=== PATIENT | female | born 1960 | race Caucasian/White ===

== ENCOUNTER 2016-08-21 06:43 | Emergency (ER) | payer OTHER ==
[2016-08-21] MEDS ORDERED: ONDANSETRON HCL IV 4 MG/2 ML VIAL IVP ONE (07:01)
[2016-08-21] MEDS ORDERED: 0.9 % SODIUM CHLORIDE 1,000 ML BAG IV ONE (07:01)
--- NOTE | 2016-08-21 07:13 | Emergency Department Record ---
History of Present Illness - General Chief complaint: Vomiting Stated complaint: VOMITING Time Seen by Provider: 08/21/16 07:09 Source: Patient Mode of Arrival: Ambulatory Limitations: No limitations - History of Present Illness Initial comments: 56 yo female presents with nausea, vomiting and frequent diarrhea since yesterday. The onset was in the afternoon. No blood in the vomit or diarrhea. No fevers. No recent antibiotics. She did eat at a [employer] [place] and noted one other sick contact that resolved yesterday. PSHx is hysterectomy. MD complaint: Diarrhea, Nausea, Vomiting Onset/Timin -: Hour(s) Description of Vomiting: Watery Associated Abdominal Pain: No Severity: Moderate Severity scale (1-10): 2 Quality: Cramping Consistency: Constant Improves with: None Worsens with: None Context: Possible food poisoning Associated Symptoms: Nausea/vomiting, Weakness - Related Data Home Medications Medication Instructions Recorded Confirmed Last Taken Methenamine Hippurate 1 gm PO DAILY 05/25/14 08/21/16 1 Day Ago Omeprazole [Omeprazole] 20 mg PO DAILY 05/25/14 08/21/16 1 Day Ago Alprazolam [Xanax] 0.25 mg PO Q8H 08/21/16 08/21/16 Unknown Estrogens, Conjugated [Premarin] 0.45 mg PO DAILY 08/21/16 08/21/16 Unknown Previous Rx's Medication Instructions Recorded Ondansetron [Zofran Odt] 4 mg PO Q8H #15 tab.rapdis 08/21/16 Allergies Allergy/AdvReac Type Severity Reaction Status Date / Time ciprofloxacin [From Cipro] AdvReac VOMITING Unverified 03/22/16 19:41 ciprofloxacin HCl AdvReac VOMITING Unverified 03/22/16 19:41 [From Cipro] hydrocodone bitartrate AdvReac VOMITING Unverified 03/22/16 19:41 [From Vicodin] morphine AdvReac VOMITING Unverified 03/22/16 19:41 Opioids - Morphine Analogues AdvReac VOMITING Verified 08/21/16 06:53 Travel Screening - Travel/Exposure Within Last 30 Days Have you traveled within the last 30 days?: No Review of Systems Constitutional: Denies: Chills, Fever, Night sweats Eyes: Denies: Eye discharge, Eye pain, Photophobia, Vision change ENT: Denies: Congestion, Throat pain Respiratory: Denies: Cough, Hemoptysis, Stridor Cardiovascular: Denies: Chest pain, Palpitations, Syncope Endocrine: Denies: Fatigue Gastrointestinal: Reports: Diarrhea, Nausea, Vomiting. Denies: Hematemesis, Hematochezia Genitourinary: Denies: Dysuria, Frequency Musculoskeletal: Denies: Arthralgia, Back pain, Myalgia, Neck pain Skin: Denies: Change in color, Rash Neurological: Denies: Headache Psychiatric: Denies: Anxiety Hematological/Lymphatic: Denies: Blood Clots, Easy bleeding, Easy bruising, Swollen glands Past Medical History - SOCIAL HISTORY Smoking Status: Former smoker Alcohol Use: None Drug Use: None - RESPIRATORY Hx Respiratory Disorders: No - CARDIOVASCULAR Hx Cardio Disorders: No - NEURO Hx Neuro Disorders: Yes Hx Headaches: Yes (hx of migraines) - GI Hx GI Disorders: Yes Hx Reflux: Yes Hx Irritable Bowel: Yes - Hx Genitourinary Disorders: No - ENDOCRINE Hx Endocrine Disorders: Yes Hx Thyroid Disease: Yes (hypo) - MUSCULOSKELETAL Hx Musculoskeletal Disorders: Yes Hx Arthritis: Yes - PSYCH Hx Psych Problems: Yes Hx Anxiety: Yes Hx Depression: Yes - HEMATOLOGY/ONCOLOGY Hx Hematology/Oncology Disorders: No Family Medical History Any Significant Family History?: Yes Hx Cancer: Father Hx Diabetes: Mother, Grandparents Physical Exam - General General Appearance: Alert, Oriented x3, Cooperative, No acute distress Limitations: No limitations - Head Head exam: Normal inspection - Eye Eye exam: Normal appearance. negative: Conjunctival injection - ENT ENT exam: Normal exam, Mucous membranes moist Ear exam: Normal external inspection Nasal Exam: Normal inspection Mouth exam: Normal external inspection Teeth exam: Normal inspection Throat exam: Normal inspection - Neck Neck exam: Normal inspection, Full ROM. negative: Tenderness - Respiratory Respiratory exam: Normal lung sounds bilaterally. negative: Respiratory distress - Cardiovascular Cardiovascular Exam: Regular rate, Normal rhythm, Normal heart sounds - GI/Abdominal GI/Abdominal exam: Soft. negative: Distended, Guarding, Rigid, Tenderness - Rectal Rectal exam: Deferred - exam: Deferred - Extremities Extremities exam: Normal inspection, Full ROM, Normal capillary refill. negative: Tenderness - Back Back exam: Reports: Normal inspection, Full ROM. Denies: Muscle spasm, Rash noted, Tenderness - Neurological Neurological exam: Alert, Normal gait, Oriented X3 - Psychiatric Psychiatric exam: Normal affect, Normal mood - Skin Skin exam: Dry, Intact, Normal color, Warm Course Vital Signs 08/21/16 07:02 Temperature 98.1 F Pulse Rate [ 79 Pulse Ox Probe] Respiratory 20 Rate Blood Pressure 141/116 [Left Arm] Pulse Ox 99 - Reevaluation(s) Reevaluation #1: Vitals reviewed. No tachycardia, hypotension or fever. 08/21/16 07:12 Reevaluation #2: The CBC and CMP reviewed. No acute changes 08/21/16 07:59 Reevaluation #3: The patient continues to feel better with controlled nausea No diarrhea at this time IVF nearly infused and will recheck. 08/21/16 09:02 Reevaluation #4: The patient is doing much better DC home with instructions 08/21/16 09:43 Medical Decision Making - Lab Data Result diagrams: 08/21/16 07:05 08/21/16 07:05 Disposition Clinical Impression: Vomiting and diarrhea Condition: (1) Good Instructions: Acute Nausea and Vomiting (ED), Acute Diarrhea (ED) Additional Instructions: Rest and stay well hydrated Return to the ED if you have fever, uncontrolled nausea, vomiting, diarrhea, pain or any new concerns. Prescriptions: Ondansetron [Zofran Odt] 4 mg PO Q8H #15 tab.rapdis Forms: Patient Portal Access
[2016-08-21 07:16] LABS: HEMATOCRIT 38.5 % (35.0-47.0); HEMOGLOBIN 13.2 gm/dl (11.6-16.0); MEAN CELL VOLUME 89.1 fl (81-97); MEAN CORPUSCULAR HEMOGLOBIN 30.6 pg (27-33); MEAN CORPUSCULAR HGB CONC 34.3 g/dl (32-36); MEAN PLATELET VOLUME 10.7 fl (7.4-10.4); PLATELET COUNT 270 K/uL (130-400); RED BLOOD COUNT 4.32 M/uL (3.80-5.40); RED CELL DISTRIBUTION WIDTH 12.8 % (11.5-14.5); WHITE BLOOD COUNT W/O DIFF 10.8 K/uL (4.2-12.2)
[2016-08-21 07:27] LABS: ALB/GLOB RATIO 1.8 (1.1-1.8); ALBUMIN 4.9 gm/dL (3.5-5.0); ALKALINE PHOSPHATASE 103 U/L (38-126); ALT/SGPT 34 U/L (9-52); ANION GAP 12.7 (7-16); AST/SGOT 26 U/L (14-36); BILIRUBIN,TOTAL 0.68 mg/dL (0.2-1.3); BLOOD UREA NITROGEN 18 mg/dL (7-17); CARBON DIOXIDE 22.3 mmol/L (22-30); CREATININE 0.8 mg/dL (0.52-1.04); EST GLOMERULAR FILTRATION RATE > 60 ml/min; GLUCOSE,RANDOM 128 mg/dL (70-110); LIPASE 94 U/L (23-300); TOTAL PROTEIN 7.7 gm/dL (6.3-8.2)
[2016-08-21 07:29] LABS: PLATELET ESTIMATE NORMAL (NORMAL)
[2016-08-21] MEDS ORDERED: LOPERAMIDE 2 MG CAPSULE PO ONE (07:36)
[2016-08-21] MEDS ORDERED: ACETAMINOPHEN 500 MG TABLET PO ONE (09:02)
== END 2016-08-21 09:57 | disposition home or self-care (01) ==
LOC: ER 06:43
DX: R11.2 Nausea with vomiting, unspecified (principal); R19.7 Diarrhea, unspecified; R53.1 Weakness
CPT/HCPCS: 80053; 83690; 85027; 96374; 99284; J2405; J7030

== ENCOUNTER 2016-08-27 06:45 | Emergency (ER) | payer OTHER ==
[2016-08-27] MEDS ORDERED: PROMETHAZINE HCL 25 MG/ML VIAL IVP ONE (07:21)
--- NOTE | 2016-08-27 07:35 | Emergency Department Record ---
History of Present Illness - General Chief Complaint: Dizziness Stated Complaint: VERTIGO Time Seen by Provider: 08/27/16 07:10 Source: Patient Mode of Arrival: Ambulatory Limitations: No limitations - History of Present Illness Initial Comments: pt is having a bout of vertigo. she ran into a wall x 2 yesterday. she is vomiting. she tried her head movement exercises without relief. she has had this for 15 years and has had ct and work up. MD Complaint: Dizziness Onset/Timin -: Days(s) Timing: Awoke with symptoms Description: Difficulty walking, Nausea, Off-balance History of Same: Yes History of Trauma: No Severity: Moderate Improves With: Nothing Worsens With: Nothing Associated Symptoms: Denies other symptoms - Chandler Coma Scale Eye Response: (4) Open spontaneously Motor Response: (6) Obeys commands Verbal Response: (5) Oriented Chandler Total: 15 - Symptoms of Stroke Symptoms of stroke: Vertigo - Related Data Home Medications Medication Instructions Recorded Confirmed Last Taken Methenamine Hippurate 1 gm PO DAILY 05/25/14 08/27/16 1 Day Ago Omeprazole [Omeprazole] 20 mg PO DAILY 05/25/14 08/27/16 1 Day Ago Alprazolam [Xanax] 0.25 mg PO Q8H 08/21/16 08/27/16 Unknown Estrogens, Conjugated [Premarin] 0.45 mg PO DAILY 08/21/16 08/27/16 Unknown Previous Rx's Medication Instructions Recorded Ondansetron [Zofran Odt] 4 mg PO Q8H #15 tab.rapdis 08/21/16 Meclizine HCl [Antivert] 12.5 mg PO Q8H #20 tablet 08/27/16 Allergies Allergy/AdvReac Type Severity Reaction Status Date / Time ciprofloxacin [From Cipro] AdvReac VOMITING Verified 08/27/16 06:53 ciprofloxacin HCl AdvReac VOMITING Verified 08/27/16 06:53 [From Cipro] hydrocodone bitartrate AdvReac VOMITING Verified 08/27/16 06:53 [From Vicodin] morphine AdvReac VOMITING Verified 08/27/16 06:53 Opioids - Morphine Analogues AdvReac VOMITING Verified 08/27/16 06:53 Travel Screening - Travel/Exposure Within Last 30 Days Have you traveled within the last 30 days?: No - Travel/Exposure Within Last Year Have you traveled outside the [place] in the last year?: No - Additonal Travel Details Have you been exposed to anyone with a communicable illness?: No - Travel Symptoms Symptom Screening: None Review of Systems Reviewed: No additional complaints except as noted below Constitutional: Reports: As per HPI. Denies: Chills, Fever, Malaise, Night sweats, Weakness, Weight change Eyes: Reports: As per HPI. Denies: Eye discharge, Eye pain, Photophobia, Vision change ENT: Reports: As per HPI. Denies: Congestion, Dental pain, Ear pain, Epistaxis , Hearing loss, Throat pain Respiratory: Reports: As per HPI. Denies: Cough, Dyspnea, Hemoptysis, Stridor, Wheezes Cardiovascular: Reports: As per HPI. Denies: Arrhythmia, Chest pain, Dyspnea on exertion, Edema, Murmurs, Orthopnea, Palpitations, Paroxysmal nocturnal dyspnea, Rheumatic Fever, Syncope Endocrine: Reports: As per HPI. Denies: Fatigue, Heat or cold intolerance, Polydipsia, Polyuria Gastrointestinal: Reports: As per HPI. Denies: Abdominal pain, Constipation, Diarrhea, Hematemesis, Hematochezia, Melena, Nausea, Vomiting Genitourinary: Reports: As per HPI. Denies: Abnormal menses, Discharge, Dyspareunia, Dysuria, Frequency, Hematuria, Incontinence, Retention, Urgency Musculoskeletal: Reports: As per HPI. Denies: Arthralgia, Back pain, Gout, Joint swelling, Myalgia, Neck pain Skin: Reports: As per HPI. Denies: Bruising, Change in color, Change in hair/ nails, Lesions, Pruritus, Rash Neurological: Reports: As per HPI. Denies: Abnormal gait, Confusion, Headache, Numbness, Paresthesias, Seizure, Tingling, Tremors, Vertigo, Weakness Psychiatric: Reports: As per HPI. Denies: Anxiety, Auditory hallucinations, Depression, Homicidal thoughts, Suicidal thoughts, Visual hallucinations Hematological/Lymphatic: Reports: As per HPI. Denies: Anemia, Blood Clots, Easy bleeding, Easy bruising, Swollen glands Past Medical History - SOCIAL HISTORY Smoking Status: Former smoker Alcohol Use: None Drug Use: None - RESPIRATORY Hx Respiratory Disorders: No - CARDIOVASCULAR Hx Cardio Disorders: No - NEURO Hx Neuro Disorders: Yes Hx Headaches: Yes (hx of migraines) - GI Hx GI Disorders: Yes Hx Reflux: Yes Hx Irritable Bowel: Yes - Hx Genitourinary Disorders: No - ENDOCRINE Hx Endocrine Disorders: Yes Hx Thyroid Disease: Yes (hypo) - MUSCULOSKELETAL Hx Musculoskeletal Disorders: Yes Hx Arthritis: Yes - PSYCH Hx Psych Problems: Yes Hx Anxiety: Yes Hx Depression: Yes - HEMATOLOGY/ONCOLOGY Hx Hematology/Oncology Disorders: No Family Medical History Any Significant Family History?: No Hx Cancer: Father Hx Diabetes: Mother, Grandparents Physical Exam - General General Appearance: Alert, Oriented x3, Cooperative, Mild distress - Head Head exam: Normal inspection - Eye Eye exam: Normal appearance, PERRL, EOMI Pupils: Normal accommodation - ENT ENT exam: Normal exam, Mucous membranes moist, Normal external ear exam, Normal orophraynx, TM's normal bilaterally Ear exam: Normal external inspection. negative: External canal tenderness Nasal Exam: Normal inspection. negative: Discharge, Sinus tenderness Mouth exam: Normal external inspection, Tongue normal Teeth exam: Normal inspection. negative: Dental caries Throat exam: Normal inspection. negative: Tonsillar erythema, Tonsillar exudate - Neck Neck exam: Normal inspection, Full ROM. negative: Tenderness - Respiratory Respiratory exam: Normal lung sounds bilaterally. negative: Respiratory distress - Cardiovascular Cardiovascular Exam: Regular rate, Normal rhythm, Normal heart sounds - GI/Abdominal GI/Abdominal exam: Soft, Normal bowel sounds. negative: Tenderness - Rectal Rectal exam: Deferred - exam: Deferred - Extremities Extremities exam: Normal inspection, Full ROM, Normal capillary refill. negative: Tenderness - Back Back exam: Reports: Normal inspection, Full ROM. Denies: Muscle spasm, Rash noted, Tenderness - Neurological Neurological exam: Alert, CN II-XII intact, Normal gait, Oriented X3 - Psychiatric Psychiatric exam: Normal affect, Normal mood - Skin Skin exam: Dry, Intact, Normal color, Warm Course Vital Signs 08/27/16 06:55 Temperature 97.9 F Pulse Rate 83 Respiratory 21 Rate Blood Pressure 153/91 Pulse Ox 96 - Reevaluation(s) Reevaluation #1: 08/27/16 08:33 pt feels better Disposition Disposition: Discharge Clinical Impression: Vertigo Disposition: Home, Self-Care Condition: (1) Good Instructions: Vertigo (ED) Additional Instructions: follow up with family doctor, return sooner if worse. Prescriptions: Meclizine HCl [Antivert] 12.5 mg PO Q8H #20 tablet Forms: Patient Portal Access
[2016-08-27] MEDS ORDERED: 0.9 % SODIUM CHLORIDE 1,000 ML BAG IV ONE (07:36)
[2016-08-27] MEDS ORDERED: MECLIZINE 25 MG TABLET PO ONE (08:37)
== END 2016-08-27 09:00 | disposition home or self-care (01) ==
LOC: ER 06:45
DX: R42 Dizziness and giddiness (principal); R11.2 Nausea with vomiting, unspecified
CPT/HCPCS: 96361; 96374; 99284; J2550; J7030

== ENCOUNTER 2016-10-02 07:33 | Emergency (ER) | payer OTHER ==
[2016-10-02] MEDS ORDERED: ONDANSETRON HCL IV 4 MG/2 ML VIAL IVP ONE (08:21)
[2016-10-02] MEDS ORDERED: 0.9 % SODIUM CHLORIDE 1,000 ML BAG IV ONE (08:37)
[2016-10-02 08:46] LABS: BASO % 0.5 % (0-6); EOS % 0.3 % (0-6); GRAN % 77.7 % (47-80); HEMATOCRIT 41.8 % (35.0-47.0); HEMOGLOBIN 13.5 gm/dl (11.6-16.0); LYMPH % 16.8 % (16-45); MEAN CELL VOLUME 89.3 fl (81-97); MEAN CORPUSCULAR HEMOGLOBIN 28.8 pg (27-33); MEAN CORPUSCULAR HGB CONC 32.3 g/dl (32-36); MEAN PLATELET VOLUME 10.8 fl (7.4-10.4); MONO % 4.7 % (0-9); PLATELET COUNT 291 K/uL (130-400); RED BLOOD COUNT 4.68 M/uL (3.80-5.40); RED CELL DISTRIBUTION WIDTH 13.2 % (11.5-14.5); WHITE BLOOD COUNT W/O DIFF 9.9 K/uL (4.2-12.2)
[2016-10-02] MEDS ORDERED: HYDROMORPHONE HCL 1 MG/ML CPJ IVP ONE (08:51)
[2016-10-02 09:00] LABS: ALB/GLOB RATIO 1.8 (1.1-1.8); ALKALINE PHOSPHATASE 88 U/L (38-126); ALT/SGPT 28 U/L (9-52); ANION GAP 13.1 (7-16); AST/SGOT 20 U/L (14-36); BILIRUBIN,TOTAL 0.89 mg/dL (0.2-1.3); BLOOD UREA NITROGEN 17 mg/dL (7-17); CARBON DIOXIDE 24.9 mmol/L (22-30); CREATININE 0.8 mg/dL (0.52-1.04); EST GLOMERULAR FILTRATION RATE > 60 ml/min; GLUCOSE,RANDOM 104 mg/dL (70-110); LIPASE 73 U/L (23-300); TOTAL PROTEIN 7.8 gm/dL (6.3-8.2)
[2016-10-02] MEDS ORDERED: KETOROLAC 30 MG/ML VIAL IVP ONE (09:49)
[2016-10-02 10:01] LABS: URINE APPEARANCE CLEAR; URINE BILIRUBIN NEGATIVE (NEGATIVE); URINE BLOOD NEGATIVE (NEGATIVE); URINE COLOR YELLOW; URINE GLUCOSE (UA) NEGATIVE (NEGATIVE); URINE KETONE NEGATIVE (NEGATIVE); URINE LEUKOCYTE ESTERASE NEGATIVE (NEGATIVE); URINE NITRITE NEGATIVE (NEGATIVE); URINE PROTEIN NEGATIVE (NEGATIVE); URINE UROBILINOGEN 0.2 E.U./dL (0.20 - 1.00)
--- NOTE | 2016-10-02 10:28 | Emergency Department Record ---
History of Present Illness - General Chief Complaint: Abdominal Pain Stated Complaint: UPPER RIGHT QUAD PAIN Time Seen by Provider: 10/02/16 08:32 Source: Patient Mode of Arrival: Ambulatory Limitations: No limitations - History of Present Illness Initial Comments: pt has been having intermittant ruq abd pain since . She had a neg gb us last week. she has n/v but no c/d. MD Complaint: Abdominal pain Onset/Timin -: Month(s) Location: RUQ Radiation: Back, R flank Severity: Severe Quality: Burning, Sharp, Stabbing Improves With: Nothing Worsens With: Nothing Associated Symptoms: Nausea, Vomiting - Related Data Patient : No Home Medications Medication Instructions Recorded Confirmed Last Taken Methenamine Hippurate 1 gm PO DAILY 05/25/14 10/02/16 10/02/16 Omeprazole [Omeprazole] 20 mg PO DAILY 05/25/14 10/02/16 10/02/16 Alprazolam [Xanax] 0.25 mg PO Q8H 08/21/16 10/02/16 10/01/16 Estrogens, Conjugated [Premarin] 0.45 mg PO DAILY 08/21/16 10/02/16 10/01/16 Previous Rx's Medication Instructions Recorded Ondansetron [Zofran Odt] 4 mg PO Q8H #15 tab.rapdis 08/21/16 Meclizine HCl [Antivert] 12.5 mg PO Q8H #20 tablet 08/27/16 Allergies Allergy/AdvReac Type Severity Reaction Status Date / Time ciprofloxacin [From Cipro] AdvReac VOMITING Verified 08/27/16 06:53 ciprofloxacin HCl AdvReac VOMITING Verified 08/27/16 06:53 [From Cipro] hydrocodone bitartrate AdvReac VOMITING Verified 08/27/16 06:53 [From Vicodin] morphine AdvReac VOMITING Verified 08/27/16 06:53 Opioids - Morphine Analogues AdvReac VOMITING Verified 08/27/16 06:53 Travel Screening - Travel/Exposure Within Last 30 Days Have you traveled within the last 30 days?: No - Travel/Exposure Within Last Year Have you traveled outside the [place] in the last year?: No - Additonal Travel Details Have you been exposed to anyone with a communicable illness?: No Review of Systems Reviewed: No additional complaints except as noted below Constitutional: Reports: As per HPI. Denies: Chills, Fever, Malaise, Night sweats, Weakness, Weight change Eyes: Reports: As per HPI. Denies: Eye discharge, Eye pain, Photophobia, Vision change ENT: Reports: As per HPI. Denies: Congestion, Dental pain, Ear pain, Epistaxis , Hearing loss, Throat pain Respiratory: Reports: As per HPI. Denies: Cough, Dyspnea, Hemoptysis, Stridor, Wheezes Cardiovascular: Reports: As per HPI. Denies: Arrhythmia, Chest pain, Dyspnea on exertion, Edema, Murmurs, Orthopnea, Palpitations, Paroxysmal nocturnal dyspnea, Rheumatic Fever, Syncope Endocrine: Reports: As per HPI. Denies: Fatigue, Heat or cold intolerance, Polydipsia, Polyuria Gastrointestinal: Reports: As per HPI. Denies: Abdominal pain, Constipation, Diarrhea, Hematemesis, Hematochezia, Melena, Nausea, Vomiting Genitourinary: Reports: As per HPI. Denies: Abnormal menses, Discharge, Dyspareunia, Dysuria, Frequency, Hematuria, Incontinence, Retention, Urgency Musculoskeletal: Reports: As per HPI. Denies: Arthralgia, Back pain, Gout, Joint swelling, Myalgia, Neck pain Skin: Reports: As per HPI. Denies: Bruising, Change in color, Change in hair/ nails, Lesions, Pruritus, Rash Neurological: Reports: As per HPI. Denies: Abnormal gait, Confusion, Headache, Numbness, Paresthesias, Seizure, Tingling, Tremors, Vertigo, Weakness Psychiatric: Reports: As per HPI. Denies: Anxiety, Auditory hallucinations, Depression, Homicidal thoughts, Suicidal thoughts, Visual hallucinations Hematological/Lymphatic: Reports: As per HPI. Denies: Anemia, Blood Clots, Easy bleeding, Easy bruising, Swollen glands Past Medical History - SOCIAL HISTORY Smoking Status: Former smoker Alcohol Use: None Drug Use: None - RESPIRATORY Hx Respiratory Disorders: No - CARDIOVASCULAR Hx Cardio Disorders: No - NEURO Hx Neuro Disorders: Yes Hx Headaches: Yes (hx of migraines) - GI Hx GI Disorders: Yes Hx Reflux: Yes Hx Irritable Bowel: Yes - Hx Genitourinary Disorders: No - ENDOCRINE Hx Endocrine Disorders: Yes Hx Thyroid Disease: Yes (hypo) - MUSCULOSKELETAL Hx Musculoskeletal Disorders: Yes Hx Arthritis: Yes - PSYCH Hx Psych Problems: Yes Hx Anxiety: Yes Hx Depression: Yes - HEMATOLOGY/ONCOLOGY Hx Hematology/Oncology Disorders: No Family Medical History Any Significant Family History?: No Hx Cancer: Father Hx Diabetes: Mother, Grandparents Physical Exam - General General Appearance: Alert, Oriented x3, Cooperative, No acute distress - Head Head exam: Normal inspection - Eye Eye exam: Normal appearance, PERRL, EOMI Pupils: Normal accommodation - ENT ENT exam: Normal exam, Mucous membranes moist, Normal external ear exam, Normal orophraynx, TM's normal bilaterally Ear exam: Normal external inspection. negative: External canal tenderness Nasal Exam: Normal inspection. negative: Discharge, Sinus tenderness Mouth exam: Normal external inspection, Tongue normal Teeth exam: Normal inspection. negative: Dental caries Throat exam: Normal inspection. negative: Tonsillar erythema, Tonsillar exudate - Neck Neck exam: Normal inspection, Full ROM. negative: Tenderness - Respiratory Respiratory exam: Normal lung sounds bilaterally. negative: Respiratory distress - Cardiovascular Cardiovascular Exam: Regular rate, Normal rhythm, Normal heart sounds - GI/Abdominal GI/Abdominal exam: Soft, Normal bowel sounds, Tenderness (ruq) - Rectal Rectal exam: Deferred - exam: Deferred - Extremities Extremities exam: Normal inspection, Full ROM, Normal capillary refill. negative: Tenderness - Back Back exam: Reports: Normal inspection, Full ROM. Denies: Muscle spasm, Rash noted, Tenderness - Neurological Neurological exam: Alert, Normal gait, Oriented X3, Reflexes normal - Psychiatric Psychiatric exam: Normal affect, Normal mood - Skin Skin exam: Dry, Intact, Normal color, Warm Course Vital Signs 10/02/16 10/02/16 10/02/16 07:43 09:00 09:50 Temperature 98.7 F Pulse Rate [ 92 H 72 68 Pulse Ox Probe] Respiratory 24 24 24 Rate Blood Pressure 107/73 126/77 133/87 [Right Arm] Pulse Ox 99 99 99 - Reevaluation(s) Reevaluation #1: 10/02/16 11:44 pt feels better. pt d/w dr sandoval who will order a hida scan. Reevaluation #2: 10/02/16 11:46 pt does not want any other pain meds. she states she already has some. Medical Decision Making - Management Options MDM Management: Additional Work-up Planned (e.g. ADM/Transfer/OP Study) - Data Complexity MDM Data: Labs Ordered and/or Reviewed, X-Ray Ordered and/or Reviewed - Lab Data Result diagrams: 10/02/16 08:00 10/02/16 08:00 Lab Results 10/02/16 10/02/16 10/02/16 Range/Units 08:00 08:00 09:55 WBC 9.9 (4.2-12.2) K/uL RBC 4.68 (3.80-5.40) M/uL Hgb 13.5 (11.6-16.0) gm/dl Hct 41.8 (35.0-47.0) % MCV 89.3 (81-97) fl MCH 28.8 (27-33) pg MCHC 32.3 (32-36) g/dl RDW 13.2 (11.5-14.5) % Plt Count 291 (130-400) K/uL MPV 10.8 H (7.4-10.4) fl Gran % 77.7 (47-80) % Lymphocytes % 16.8 (16-45) % Monocytes % 4.7 (0-9) % Eosinophils % 0.3 (0-6) % Basophils % 0.5 (0-6) % Sodium 141 (136-145) mmol/L Potassium 4.2 (3.5-5.1) mmol/L Chloride 103 (98-107) mmol/L Carbon Dioxide 24.9 (22-30) mmol/L Anion Gap 13.1 (7-16) BUN 17 (7-17) mg/dL Creatinine 0.8 (0.52-1.04) mg/dL Estimated GFR > 60 ml/min Random Glucose 104 (70-110) mg/dL Calcium 9.8 (8.5-10.1) mg/dL Total Bilirubin 0.89 (0.2-1.3) mg/dL AST 20 (14-36) U/L ALT 28 (9-52) U/L Alkaline Phosphatase 88 (38-126) U/L Total Protein 7.8 (6.3-8.2) gm/dL Albumin 5.0 (3.5-5.0) gm/dL Globulin 2.8 (1.4-4.8) gm/dL Albumin/Globulin Ratio 1.8 (1.1-1.8) Lipase 73 (23-300) U/L Urine Color Yellow Urine Appearance Clear Urine pH 6.0 (5.0-8.0) Ur Specific [place] 1.010 (1.002-1.030) Urine Protein Negative (NEGATIVE) Urine Glucose (UA) Negative (NEGATIVE) Urine Ketones Negative (NEGATIVE) Urine Blood Negative (NEGATIVE) Urine Nitrite Negative (NEGATIVE) Urine Bilirubin Negative (NEGATIVE) Urine Urobilinogen 0.2 (0.20 - 1.00) E.U./dL Ur Leukocyte Esterase Negative (NEGATIVE) - Radiology Data Radiology results: Report reviewed, Image reviewed Disposition Disposition: Discharge Clinical Impression: RUQ pain Disposition: Home, Self-Care Condition: (1) Good Instructions: Abdominal Pain (ED) Additional Instructions: follow up with family doctor. return sooner if worse. Forms: Patient Portal Access
== END 2016-10-02 12:01 | disposition home or self-care (01) ==
LOC: ER 07:33
DX: R10.11 Right upper quadrant pain (principal); R11.2 Nausea with vomiting, unspecified
CPT/HCPCS: 99284 ×2; 96374; 96375; 83690; 85025; 80053; 81003; 74177; Q9967; J1885; J2405; J1170; J7030

== ENCOUNTER 2016-10-16 07:30 | Day surgery (SDC) | payer OTHER ==
[~2016-10-16 07:30] MED LIST: ACETAMINOPHEN 1,000 MG/100 ML BTL IV ONE; FAMOTIDINE 20MG TABLET PO ONE; MECLIZINE 25 MG TABLET PO ONE; METOCLOPRAMIDE 10 MG TABLET PO ONE
[2016-10-16] MEDS ORDERED: ACETAMINOPHEN W/ CODEINE 300MG/30MG TABLET PO ONE (13:27)
[2016-10-16] MEDS ORDERED: BUPIVACAINE 0.25% W/EPI MPF 30ML VIAL IVP ONE (13:27)
[2016-10-16] MEDS ORDERED: FENTANYL PF 100MCG/2ML VIAL IV ONE (13:27)
[2016-10-16] MEDS ORDERED: MIDAZOLAM HCL 2MG/2ML VIAL IV ONE (14:00)
[2016-10-16] MEDS ORDERED: DESFLURANE 240 ML BTL INH ONE (14:00)
[2016-10-16] MEDS ORDERED: GLYCOPYRROLATE 0.2 MG/ML ML IV ONE (14:00)
[2016-10-16] MEDS ORDERED: NEOSTIGMINE 1 MG/1 ML,10ML VIAL IV ONE (14:00)
[2016-10-16] MEDS ORDERED: DEXAMETHASONE 4 MG/ML 1ML VIAL IVP ONE (14:00)
[2016-10-16] MEDS ORDERED: ESMOLOL HCL 100 MG/10 ML ML IVP ONE (14:00)
[2016-10-16] MEDS ORDERED: ROCURONIUM BROMIDE 50MG/5ML VIAL IV ONE (14:00)
[2016-10-16] MEDS ORDERED: PROPOFOL 10 MG/ML VIAL IV ONE (14:00)
[2016-10-16] MEDS ORDERED: ONDANSETRON HCL IV 4 MG/2 ML VIAL IVP ONE (14:00)
[2016-10-16] MEDS ORDERED: SUCCINYLCHOLINE 20 MG/ML 10ML IVP ONE (14:00)
[2016-10-16] MEDS ORDERED: KETOROLAC 30 MG/ML VIAL IVP ONE (14:00)
[2016-10-16] MEDS ORDERED: LIDOCAINE 2% MDV (20MG/ML) 20ML VIAL IV ONE (14:00)
--- NOTE | 2016-10-19 17:07 | Operative Note ---
DATE OF SURGERY: 10/16/2016. SURGEON: Derrick Rodriguez DO. PREOPERATIVE DIAGNOSIS: Symptomatic biliary dyskinesia. POSTOPERATIVE DIAGNOSIS: Symptomatic biliary dyskinesia. OPERATION: Laparoscopic cholecystectomy. Indication: Patient is a 56-year-old female who I saw in clinic for ongoing right subcostal postprandial pain. Imaging studies revealed an ejection fraction of 15% with symptomatic reproduction of her pain. We did discuss cholecystectomy, the risks, and medical management. She desired surgical intervention. Risks include, but not limited to, bleeding, infection, ductal injury, possible conversion to open, postoperative bile leak, and she understood this fully. PROCEDURE: Informed consent was signed and questions answered. She was taken to the operating room and placed in the supine position. General anesthesia was administered per Department of Anesthesia. Patient's abdomen was prepped and draped in the usual fashion. At this time, the supraumbilical region was anesthetized with a total of 2 mL of 0.25% Sensorcaine with epinephrine. A 2 cm supraumbilical incision made. This was carried down to the anterior rectus fascia. This was incised. Jass clamps were placed on the fascial edges and brought up into the wound. Stay sutures of 0 Vicryl placed. Posterior rectus sheath was identified, incised and the peritoneal cavity was entered bluntly. At this time, a 10 mm blunt Raissa port was placed and adequate pneumoperitoneum established. Under direct visualization, an additional 5 mm epigastric and two 5 mm right subcostal ports were placed. Patient then rotated into reverse Trendelenburg position to the left. Gallbladder was then retracted in cephalad and lateral direction, opening the angle of Calot. The hepatocystic triangle was thoroughly dissected out. There was no aberrant anatomy. No posterior ductal structures. Cystic duct and cystic artery were clearly identified. At this time, after the gallbladder was released from the liver exposure. At this time, each one was doubly clipped and cut in standard fashion. The gallbladder was taken off the liver bed with the Manpreet Harmonic. At this time, this was extracted infraumbilically. At this time, the right upper quadrant was then rechecked and was found to be hemostatic. No bleeding, no bile leak, and no bowel injury noted. Patient was leveled out and pneumoperitoneum was released. All ports were removed. The fascia closed with 0 Vicryl in a [id number] fashion. All ports closed with 4-0 Vicryl. She was taken to the recovery room in satisfactory condition. Final pathology pending. MESFIN
== END 2016-10-16 11:25 | disposition home or self-care (01) ==
LOC: SUR 07:30
PROVIDERS: ATTEND Surgery
DX: K82.8 Other specified diseases of gallbladder (principal); E03.9 Hypothyroidism, unspecified
CPT/HCPCS: 47562; 00790; J1885; J2405; J3010; J0330; J2710

== ENCOUNTER 2016-10-16 20:42 | Emergency (ER) | payer OTHER ==
--- NOTE | 2016-10-16 22:16 | Emergency Department Record ---
History of Present Illness - General Chief complaint: Pain Stated complaint: POST OP PAIN Time Seen by Provider: 10/16/16 21:12 Source: Patient, Family Mode of Arrival: Ambulatory Limitations: No limitations - History of Present Illness Initial comments: 56 yo female presents with RUQ pain after surgery today. She had her gallbladder removed by Dr Rodriguez this morning. She reports she was discharged home by 11am. The pain started around 11am. No chest pain or cough. No shortness of breath. The pain is isolated to the RUQ. She has not voided since surgery. She is on T3 and Motrin. She is not able to tolerate Morphine or Diluadid. No diarrhea. MD Complaint: Abdominal Pain Onset/Timin -: Hour(s) Location: Right Severity scale (1-10): 10 Quality: Sharp, Stabbing Consistency: Constant Improves with: Nothing Worsens with: Exertion, Walking, Other Associated Symptoms: Denies other symptoms - Related Data Home Medications Medication Instructions Recorded Confirmed Last Taken Methenamine Hippurate 1 gm PO DAILY 05/25/14 10/16/16 10/16/16 Omeprazole [Omeprazole] 20 mg PO DAILY 05/25/14 10/16/16 10/16/16 Alprazolam [Xanax] 0.25 mg PO Q8H 08/21/16 10/16/16 10/16/16 Estrogens, Conjugated [Premarin] 0.45 mg PO DAILY 08/21/16 10/16/16 10/16/16 Previous Rx's Medication Instructions Recorded Ondansetron [Zofran Odt] 4 mg PO Q8H #15 tab.rapdis 08/21/16 Meclizine HCl [Antivert] 12.5 mg PO Q8H #20 tablet 08/27/16 Allergies Allergy/AdvReac Type Severity Reaction Status Date / Time ciprofloxacin [From Cipro] AdvReac VOMITING Verified 08/27/16 06:53 ciprofloxacin HCl AdvReac VOMITING Verified 08/27/16 06:53 [From Cipro] hydrocodone bitartrate AdvReac VOMITING Verified 08/27/16 06:53 [From Vicodin] morphine AdvReac VOMITING Verified 08/27/16 06:53 Opioids - Morphine Analogues AdvReac VOMITING Verified 08/27/16 06:53 Travel Screening - Travel/Exposure Within Last 30 Days Have you traveled within the last 30 days?: No Review of Systems Constitutional: Denies: Chills, Fever, Malaise, Weakness Eyes: Denies: Eye discharge ENT: Denies: Congestion, Throat pain Respiratory: Denies: Cough, Dyspnea, Hemoptysis, Stridor, Wheezes Cardiovascular: Denies: Chest pain, Palpitations, Syncope Endocrine: Denies: Fatigue, Polydipsia, Polyuria Gastrointestinal: Reports: Abdominal pain. Denies: Diarrhea, Nausea, Vomiting Genitourinary: Denies: Dysuria, Urgency Musculoskeletal: Denies: Arthralgia, Back pain, Myalgia, Neck pain Skin: Denies: Bruising, Change in color, Rash Neurological: Denies: Headache, Numbness, Vertigo, Weakness Psychiatric: Denies: Anxiety Hematological/Lymphatic: Denies: Blood Clots, Easy bleeding, Easy bruising, Swollen glands Past Medical History - SOCIAL HISTORY Smoking Status: Former smoker Alcohol Use: None Drug Use: None - RESPIRATORY Hx Respiratory Disorders: No - CARDIOVASCULAR Hx Cardio Disorders: No - NEURO Hx Neuro Disorders: Yes Hx Dizziness: Yes (HX VERTIGO) Hx Headaches: Yes (hx of migraines) Hx of Migraines: Yes - GI Hx GI Disorders: Yes Hx Abdominal Pain: Yes (R/T GALLBLADDER) Hx Reflux: Yes Hx Irritable Bowel: Yes Hx Nausea/Vomiting: Yes - Hx Genitourinary Disorders: No Hx Bladder Problem: Yes (PROLAPSE) - ENDOCRINE Hx Endocrine Disorders: Yes Hx Thyroid Disease: Yes (hypo) - MUSCULOSKELETAL Hx Musculoskeletal Disorders: Yes Hx Arthritis: Yes (OSTEOARTHRITIS, DDD) - PSYCH Hx Psych Problems: Yes Hx Anxiety: Yes Hx Depression: Yes - HEMATOLOGY/ONCOLOGY Hx Hematology/Oncology Disorders: No Family Medical History Any Significant Family History?: No Hx Cancer: Father Hx Diabetes: Mother, Grandparents Physical Exam - General General Appearance: Alert, Oriented x3, Cooperative, No acute distress Limitations: No limitations - Head Head exam: Atraumatic, Normal inspection - Eye Eye exam: Normal appearance, PERRL. negative: Conjunctival injection, Periorbital swelling - ENT ENT exam: Normal exam, Mucous membranes moist Ear exam: Normal external inspection Nasal Exam: Normal inspection Mouth exam: Normal external inspection Teeth exam: Normal inspection Throat exam: Normal inspection - Neck Neck exam: Normal inspection - Respiratory Respiratory exam: Normal lung sounds bilaterally. negative: Respiratory distress - Cardiovascular Cardiovascular Exam: Regular rate, Normal rhythm, Normal heart sounds - GI/Abdominal GI/Abdominal exam: Soft, Tenderness (Tender in the RUQ but soft) - Rectal Rectal exam: Deferred - exam: Deferred - Extremities Extremities exam: Normal inspection, Full ROM, Normal capillary refill. negative: Pedal edema, Tenderness - Back Back exam: Reports: Normal inspection, Full ROM. Denies: CVA tenderness (R), CVA tenderness (L), Muscle spasm, Rash noted, Tenderness - Neurological Neurological exam: Alert, Normal gait, Oriented X3, Reflexes normal - Psychiatric Psychiatric exam: Normal affect, Normal mood - Skin Skin exam: Dry, Intact, Normal color, Warm Course Vital Signs 10/16/16 21:31 Temperature 98.0 F Pulse Rate [ 106 H Pulse Ox Probe] Respiratory 20 Rate Blood Pressure 137/84 [Left Arm] Pulse Ox 98 - Reevaluation(s) Reevaluation #1: 10/16/16 22:17 Bladder scan ordered given she has not voided since surgery Reevaluation #2: The labs were reviewed The WBC count was 13.8 HCO3 19 The bladder scan was greater than 1000ml Yost was placed. About 800ml quickly drained. The abdominal pain increased. She was given Ofirmev 10/16/16 23:09 Reevaluation #3: The UA is negative The pain in the RUQ persists The patient states the RUQ pain is unchanged She does feel a tickle in her throat now that is making her cough. She denies any CP. 10/16/16 23:[address] Rodriguez of general surgery. He states the case was uncomplicated today. He does not recommend any imaging given the surgery was 12 hours earlier. He recommends trying other pain control options with the patient According to the EMR the patient did have Fentanyl today without reaction I explained this to the patient and she agrees to take Fentanyl EKG 23:30 NSR, rate 82, intervals Qt 405 QTc 479, ST normal, [place] leftward, no acute changes. No changes from prior EKG 10/16/16 23:41 10/16/16 23:44 Reevaluation #4: The patient was given Fentanyl without reaction or hives or vomiting. She reported improved pain control. 10/17/16 00:14 Reevaluation #5: The patient reports very good pain control down to 1-2 / 10 We discussed home care, reasons for immediate return and close follow up with Dr Rodriguez 10/17/16 00:38 Medical Decision Making - Lab Data Result diagrams: 10/16/16 22:32 10/16/16 22:32 Disposition Disposition: Discharge Clinical Impression: RUQ pain Disposition: Home, Self-Care Condition: (1) Good Instructions: Abdominal Pain (ED) Additional Instructions: Return immediately if you have fever, vomiting or pain that is not controlled Call Dr Rodriguez for close follow up of your pain Forms: Patient Portal Access Time of Disposition: 00:40
[2016-10-16 22:43] LABS: BASO % 0.1 % (0-6); HEMATOCRIT 38.7 % (35.0-47.0); HEMOGLOBIN 12.7 gm/dl (11.6-16.0); LYMPH % 5.1 % (16-45); MEAN CELL VOLUME 88.6 fl (81-97); MEAN CORPUSCULAR HEMOGLOBIN 29.1 pg (27-33); MEAN CORPUSCULAR HGB CONC 32.8 g/dl (32-36); MEAN PLATELET VOLUME 10.7 fl (7.4-10.4); MONO % 3.5 % (0-9); PLATELET COUNT 291 K/uL (130-400); RED BLOOD COUNT 4.37 M/uL (3.80-5.40); WHITE BLOOD COUNT W/O DIFF 13.8 K/uL (4.2-12.2)
[2016-10-16] MEDS: ACETAMINOPHEN 1,000 MG/100 ML BTL IVPB ONE (22:54)
[2016-10-16] MEDS: 0.9 % SODIUM CHLORIDE 1,000 ML BAG IV ONE (22:54)
[2016-10-16 22:55] LABS: ALBUMIN 4.9 gm/dL (3.5-5.0); ALKALINE PHOSPHATASE 86 U/L (38-126); ALT/SGPT 32 U/L (9-52); AST/SGOT 35 U/L (14-36); BILIRUBIN,TOTAL 0.85 mg/dL (0.2-1.3); BLOOD UREA NITROGEN 14 mg/dL (7-17); CREATININE 0.7 mg/dL (0.52-1.04); EST GLOMERULAR FILTRATION RATE > 60 ml/min; GLUCOSE,RANDOM 165 mg/dL (70-110); LIPASE 39 U/L (23-300); TOTAL PROTEIN 7.4 gm/dL (6.3-8.2)
[2016-10-16] MEDS: KETOROLAC 30 MG/ML VIAL IVP ONE (23:13)
[2016-10-16 23:16] LABS: URINE APPEARANCE CLEAR; URINE BILIRUBIN NEGATIVE (NEGATIVE); URINE BLOOD NEGATIVE (NEGATIVE); URINE COLOR YELLOW; URINE KETONE NEGATIVE (NEGATIVE); URINE LEUKOCYTE ESTERASE NEGATIVE (NEGATIVE); URINE NITRITE NEGATIVE (NEGATIVE); URINE PROTEIN NEGATIVE (NEGATIVE); URINE UROBILINOGEN 0.2 E.U./dL (0.20 - 1.00)
[2016-10-16] MEDS ORDERED: ALBUTEROL SULFATE (0.083%) 2.5 MG/3 ML NEB INH ONE (23:29)
[2016-10-16] MEDS: ONDANSETRON HCL IV 4 MG/2 ML VIAL IVP ONE (23:45)
[2016-10-16] MEDS: FENTANYL PF 100MCG/2ML VIAL IVP ONE (23:46)
== END 2016-10-17 00:55 | disposition home or self-care (01) ==
LOC: ER 20:42
DX: G89.18 Other acute postprocedural pain (principal); R10.11 Right upper quadrant pain; R51 Headache; R06.00 Dyspnea, unspecified
CPT/HCPCS: 51702; 99284 ×2; 96365; 96375; 83690; 80053; 81003; 85027; 93005; 93010; J1885; J2405; J3010; J7030

== ENCOUNTER 2017-03-12 05:35 | Inpatient (IN) | payer OTHER ==
[2017-03-12] MEDS ORDERED: ONDANSETRON HCL IV 4 MG/2 ML VIAL IVP ONE (05:59)
[2017-03-12] MEDS ORDERED: HYOSCYAMINE SULFATE ODT 0.125 MG TAB.SUBL SL ONE (06:02)
--- NOTE | 2017-03-12 06:08 | Emergency Department Record ---
History of Present Illness - General Chief complaint: Nausea, Vomiting, Diarrhea Stated complaint: NAUSEA/VOMITING Time Seen by Provider: 03/12/17 06:01 Source: Patient Mode of Arrival: Ambulatory Limitations: No limitations - History of Present Illness Initial comments: 57 yo female presents to ED with a CC of nausea, vomiting, and diarrhea that began yesterday. Patient reports taking Immodium which did not improve her symptoms. Patient denies fevers/chills or recent ill contacts. Patient deniers previous abdominal surgeries other than bladder sling "which was unsuccessful". MD complaint: Abdominal pain, Diarrhea, Nausea, Vomiting Onset/Timin -: Days(s) Description of Vomiting: Food contents Associated Abdominal Pain: Yes Location: Periumbilcal Radiation: None Severity: Moderate Severity scale (1-10): 8 Quality: Sharp Consistency: Constant, Getting worse Improves with: None Worsens with: Movement, Vomiting Associated Symptoms: Nausea/vomiting - Related Data Previous Rx's Medication Instructions Recorded Ondansetron [Zofran Odt] 4 mg PO Q8H #15 tab.rapdis 08/21/16 Meclizine HCl [Antivert] 12.5 mg PO Q8H #20 tablet 08/27/16 Nitrofurantoin [place] [Macrobid] 100 mg PO BID #13 capsule 12/18/16 Allergies Allergy/AdvReac Type Severity Reaction Status Date / Time ciprofloxacin [From Cipro] AdvReac VOMITING Verified 03/12/17 05:40 ciprofloxacin HCl AdvReac VOMITING Verified 03/12/17 05:40 [From Cipro] hydrocodone bitartrate AdvReac VOMITING Verified 03/12/17 05:40 [From Vicodin] morphine AdvReac VOMITING Verified 03/12/17 05:40 Opioids - Morphine Analogues AdvReac VOMITING Verified 03/12/17 05:40 Travel Screening - Travel/Exposure Within Last 30 Days Have you traveled within the last 30 days?: No - Travel/Exposure Within Last Year Have you traveled outside the [place] in the last year?: No - Additonal Travel Details Have you been exposed to anyone with a communicable illness?: No - Travel Symptoms Symptom Screening: None Review of Systems Constitutional: Denies: Chills, Fever, Malaise, Night sweats Eyes: Denies: Eye discharge, Eye pain ENT: Denies: Congestion, Ear pain, Epistaxis Respiratory: Denies: Cough, Dyspnea Cardiovascular: Denies: Chest pain, Dyspnea on exertion Endocrine: Denies: Fatigue, Heat or cold intolerance Gastrointestinal: Reports: Abdominal pain, Diarrhea, Nausea, Vomiting Genitourinary: Denies: Incontinence, Retention Musculoskeletal: Denies: Arthralgia, Back pain, Gout, Joint swelling Skin: Denies: Bruising, Change in color, Change in hair/nails Neurological: Denies: Abnormal gait, Confusion, Headache, Seizure Psychiatric: Denies: Anxiety Hematological/Lymphatic: Denies: Anemia, Blood Clots Past Medical History - SOCIAL HISTORY Smoking Status: Former smoker Alcohol Use: None Drug Use: None - RESPIRATORY Hx Respiratory Disorders: No - CARDIOVASCULAR Hx Cardio Disorders: No - NEURO Hx Neuro Disorders: Yes Hx Dizziness: Yes (HX VERTIGO) Hx Headaches: Yes (hx of migraines) Hx of Migraines: Yes - GI Hx GI Disorders: Yes Hx Abdominal Pain: Yes (R/T GALLBLADDER) Hx Reflux: Yes Hx Irritable Bowel: Yes Hx Nausea/Vomiting: Yes - Hx Genitourinary Disorders: Yes Hx Bladder Problem: Yes (PROLAPSE) - ENDOCRINE Hx Endocrine Disorders: Yes Hx Thyroid Disease: Yes (hypo) - MUSCULOSKELETAL Hx Musculoskeletal Disorders: Yes Hx Arthritis: Yes (OSTEOARTHRITIS, DDD) - PSYCH Hx Psych Problems: Yes Hx Anxiety: Yes Hx Depression: Yes - HEMATOLOGY/ONCOLOGY Hx Hematology/Oncology Disorders: No Family Medical History Any Significant Family History?: No Hx Cancer: Father Hx Diabetes: Mother, Grandparents Physical Exam - General General Appearance: Alert, Oriented x3, Cooperative, Moderate distress Limitations: No limitations - Head Head exam: Atraumatic, Normocephalic, Normal inspection Head exam detail: negative: Abrasion, Contusion, Armenta's sign, General tenderness, Hematoma, Laceration - Eye Eye exam: Normal appearance. negative: Conjunctival injection, Periorbital swelling, Periorbital tenderness, Scleral icterus - ENT Ear exam: negative: Auricular hematoma, Auricular trauma Nasal Exam: negative: Active bleeding, Discharge, Dried blood, Foreign body Mouth exam: negative: Drooling, Laceration, Tongue elevation - Neck Neck exam: Normal inspection. negative: Meningismus, Tenderness - Respiratory Respiratory exam: Normal lung sounds bilaterally. negative: Rales, Respiratory distress, Rhonchi, Stridor - Cardiovascular Cardiovascular Exam: Regular rate, Normal rhythm, Normal heart sounds - GI/Abdominal GI/Abdominal exam: Soft, Tenderness (mild, diffuse TTP on examination, no rebound or guarding is present). negative: Rebound, Rigid - Rectal Rectal exam: Deferred - exam: Deferred - Extremities Extremities exam: Normal inspection. negative: Calf tenderness, Pedal edema, Tenderness - Back Back exam: Denies: CVA tenderness (R), CVA tenderness (L) - Neurological Neurological exam: Alert, Normal gait, Oriented X3 - Psychiatric Psychiatric exam: Normal affect, Normal mood - Skin Skin exam: Normal color. negative: Abrasion Type of lesion: negative: abrasion Course Vital Signs 03/12/17 05:43 Temperature 97.7 F Pulse Rate [ 98 H Pulse Ox Probe] Respiratory 20 Rate Blood Pressure 187/90 [Left Arm] Pulse Ox 99 - Reevaluation(s) Reevaluation #1: 03/12/17 06:37 Labs reviewed, WBC 11.9 with 82% neutrophils, CO2 20. Stool studies are pending at this time. Reevaluation #2: 03/12/17 07:10 Case was discussed with oncoming provider, will assume care and disposition pending CT imaging results. Medical Decision Making - Lab Data Result diagrams: 03/12/17 06:09 03/12/17 06:09 Disposition Forms: Patient Portal Access Quality - Quality Measures Quality Measures: N/A - Blood Pressure Screening Does Patient Have Any of the Following: No Blood Pressure Classification: Hypertensive Reading Systolic Measurement: 187 Diastolic Measurement: 90 Screening for High Blood Pressure: < First Hypertensive BP, F/U Documented > [ G8950] First Hypertensive Follow-up Interventions: Referral to alternative/primary care provider.
[2017-03-12 06:15] LABS: HEMATOCRIT 37.9 % (35.0-47.0); MEAN CELL VOLUME 87.3 fl (81-97); MEAN CORPUSCULAR HGB CONC 34.3 g/dl (32-36); MEAN PLATELET VOLUME 10.4 fl (7.4-10.4); PLATELET COUNT 254 K/uL (130-400); RED BLOOD COUNT 4.34 M/uL (3.80-5.40); RED CELL DISTRIBUTION WIDTH 13.3 % (11.5-14.5); WHITE BLOOD COUNT W/O DIFF 11.9 K/uL (4.2-12.2)
[2017-03-12] MEDS ORDERED: 0.9 % SODIUM CHLORIDE 1000ML 1,000 ML IV SCH (06:15)
[2017-03-12 06:33] LABS: ALB/GLOB RATIO 1.8 (1.1-1.8); ALBUMIN 4.6 g/dL (4.0-5.0); ALKALINE PHOSPHATASE 88 U/L (35-104); ALT/SGPT 24 U/L (<33); AST/SGOT 23 U/L (10.0-35.0); BLOOD UREA NITROGEN 11 mg/dL (6-20); CREATININE 0.7 mg/dL (0.5-0.9); EST GLOMERULAR FILTRATION RATE > 60 mL/min; GLUCOSE,RANDOM 140 mg/dL (74-109); LIPASE 21 U/L (13-60); TOTAL PROTEIN 7.2 g/dL (6.6-8.7)
[2017-03-12] MEDS ORDERED: PROMETHAZINE HCL 12.5 MG in 0.9 % SODIUM CHLORIDE 100ML 100 ML IVPB ONE (07:09)
--- NOTE | 2017-03-12 07:16 | Emergency Department Record ---
History of Present Illness - General Chief complaint: Nausea, Vomiting, Diarrhea Stated complaint: NAUSEA/VOMITING Time Seen by Provider: 03/12/17 06:01 Source: Patient Mode of Arrival: Ambulatory Limitations: No limitations - History of Present Illness Initial comments: 57 yo female patient presents with nausea, vomiting and diarrhea The onset was yesterday. The labs were reviewed with Dr Shea The patient was sent for a CT scan which is pending at this time MD complaint: Abdominal pain, Diarrhea, Nausea, Vomiting Onset/Timin -: Days(s) Description of Vomiting: Food contents Associated Abdominal Pain: Yes Location: Periumbilcal Radiation: None Severity: Moderate Severity scale (1-10): 8 Quality: Sharp Consistency: Constant, Getting worse Improves with: None Worsens with: Movement, Vomiting Associated Symptoms: Nausea/vomiting - Related Data Previous Rx's Medication Instructions Recorded Ondansetron [Zofran Odt] 4 mg PO Q8H #15 tab.rapdis 08/21/16 Meclizine HCl [Antivert] 12.5 mg PO Q8H #20 tablet 08/27/16 Nitrofurantoin [place] [Macrobid] 100 mg PO BID #13 capsule 12/18/16 Allergies Allergy/AdvReac Type Severity Reaction Status Date / Time ciprofloxacin [From Cipro] AdvReac VOMITING Verified 03/12/17 05:40 ciprofloxacin HCl AdvReac VOMITING Verified 03/12/17 05:40 [From Cipro] hydrocodone bitartrate AdvReac VOMITING Verified 03/12/17 05:40 [From Vicodin] morphine AdvReac VOMITING Verified 03/12/17 05:40 Opioids - Morphine Analogues AdvReac VOMITING Verified 03/12/17 05:40 Travel Screening - Travel/Exposure Within Last 30 Days Have you traveled within the last 30 days?: No - Travel/Exposure Within Last Year Have you traveled outside the [place] in the last year?: No - Additonal Travel Details Have you been exposed to anyone with a communicable illness?: No - Travel Symptoms Symptom Screening: None Review of Systems Constitutional: Denies: Chills, Fever, Malaise, Night sweats Eyes: Denies: Eye discharge, Eye pain ENT: Denies: Congestion, Ear pain, Epistaxis Respiratory: Denies: Cough, Dyspnea Cardiovascular: Denies: Chest pain, Dyspnea on exertion Endocrine: Denies: Fatigue, Heat or cold intolerance Gastrointestinal: Reports: Abdominal pain, Diarrhea, Nausea, Vomiting Genitourinary: Denies: Incontinence, Retention Musculoskeletal: Denies: Arthralgia, Back pain, Gout, Joint swelling Skin: Denies: Bruising, Change in color, Change in hair/nails Neurological: Denies: Abnormal gait, Confusion, Headache, Seizure Psychiatric: Denies: Anxiety Hematological/Lymphatic: Denies: Anemia, Blood Clots Past Medical History - SOCIAL HISTORY Smoking Status: Former smoker Alcohol Use: None Drug Use: None - RESPIRATORY Hx Respiratory Disorders: No - CARDIOVASCULAR Hx Cardio Disorders: No - NEURO Hx Neuro Disorders: Yes Hx Dizziness: Yes (HX VERTIGO) Hx Headaches: Yes (hx of migraines) Hx of Migraines: Yes - GI Hx GI Disorders: Yes Hx Abdominal Pain: Yes (R/T GALLBLADDER) Hx Reflux: Yes Hx Irritable Bowel: Yes Hx Nausea/Vomiting: Yes - Hx Genitourinary Disorders: Yes Hx Bladder Problem: Yes (PROLAPSE) - ENDOCRINE Hx Endocrine Disorders: Yes Hx Thyroid Disease: Yes (hypo) - MUSCULOSKELETAL Hx Musculoskeletal Disorders: Yes Hx Arthritis: Yes (OSTEOARTHRITIS, DDD) - PSYCH Hx Psych Problems: Yes Hx Anxiety: Yes Hx Depression: Yes - HEMATOLOGY/ONCOLOGY Hx Hematology/Oncology Disorders: No Family Medical History Any Significant Family History?: No Hx Cancer: Father Hx Diabetes: Mother, Grandparents Physical Exam - General Limitations: No limitations Course Vital Signs 03/12/17 05:43 Temperature 97.7 F Pulse Rate [ 98 H Pulse Ox Probe] Respiratory 20 Rate Blood Pressure 187/90 [Left Arm] Pulse Ox 99 - Reevaluation(s) Reevaluation #1: The CT scan from [facility] was reviewed. There is diffuse thickening of the colon likely representing inflammatory or infectious colitis. The patient is still vomiting and symptomatic. She will be admitted for OBV for IVF, anti-emetics. 03/12/17 07:27 03/12/17 07:40 David Cao of the [facility] admission service The patient will be admitted for symptomatic care for colitis The patient has now provided a stool study Medical Decision Making - Lab Data Result diagrams: 03/12/17 06:09 03/12/17 06:09 Lab Results 03/12/17 03/12/17 Range/Units 06:09 06:09 WBC 11.9 (4.2-12.2) K/uL RBC 4.34 (3.80-5.40) M/uL Hgb 13.0 (11.6-16.0) gm/dl Hct 37.9 (35.0-47.0) % MCV 87.3 (81-97) fl MCH 30.0 (27-33) pg MCHC 34.3 (32-36) g/dl RDW 13.3 (11.5-14.5) % Plt Count 254 (130-400) K/uL MPV 10.4 (7.4-10.4) fl Neutrophils % 82.0 H (47-80) % Band Neutrophils % 0.0 (0-5) % Eosinophils % Not Reportable Basophils % Not Reportable Lymphocytes 12.0 L (16-45) % Monocytes 6.0 (0-9) % Basophils 0.0 (0-6) % Eosinophil Count 0.0 (0-6) % Sodium 141 (136-145) mmol/L Potassium 3.9 (3.4-4.5) mmol/L Chloride 105 (98-107) mmol/L Carbon Dioxide 20.0 L (22-29) mmol/L Anion Gap 16.0 (7-16) BUN 11 (6-20) mg/dL Creatinine 0.7 (0.5-0.9) mg/dL Estimated GFR > 60 mL/min Random Glucose 140 H (74-109) mg/dL Calcium 9.7 (8.6-10.0) mg/dL Total Bilirubin 0.70 (0.2-1.0) mg/dL AST 23 (10.0-35.0) U/L ALT 24 (<33) U/L Alkaline Phosphatase 88 (35-104) U/L Total Protein 7.2 (6.6-8.7) g/dL Albumin 4.6 (4.0-5.0) g/dL Globulin 2.6 (1.4-4.8) gm/dL Albumin/Globulin Ratio 1.8 (1.1-1.8) Lipase 21 (13-60) U/L Disposition Disposition: Admit Clinical Impression: Vomiting and diarrhea Disposition: Still a Patient at [facility] Decision to Admit: Admit from ER Decision to Admit Date: 03/12/17 Decision to Admit Time: 07:32 Condition: (1) Good Forms: Patient Portal Access Time of Disposition: 07:29 Quality - Quality Measures Quality Measures: N/A - Blood Pressure Screening Does Patient Have Any of the Following: No Blood Pressure Classification: Hypertensive Reading Systolic Measurement: 187 Diastolic Measurement: 90 Screening for High Blood Pressure: < Pre-Hypertensive BP, F/U Documented > [ G8950] Pre-Hypertensive Follow-up Interventions: Referral to alternative/primary care provider.
[2017-03-12 07:57] LABS: URINE APPEARANCE CLEAR; URINE BILIRUBIN NEGATIVE (NEGATIVE); URINE BLOOD MODERATE (NEGATIVE); URINE COLOR YELLOW; URINE GLUCOSE (UA) NEGATIVE (NEGATIVE); URINE KETONE NEGATIVE (NEGATIVE); URINE LEUKOCYTE ESTERASE NEGATIVE (NEGATIVE); URINE NITRITE NEGATIVE (NEGATIVE); URINE PROTEIN NEGATIVE (NEGATIVE); URINE UROBILINOGEN 0.2 E.U./dL (0.20 - 1.00)
[2017-03-12 08:00] LABS: ROTOVIRUS NOT DETECTED (NOT DETECT)
[2017-03-12 08:04] LABS: URINE WBC NONE SEEN (0-2/hpf)
[2017-03-12 08:41] LABS: MOLECULAR C DIFF TOXIN SCREEN NOT DETECTED (NOT DETECT)
[2017-03-12] MEDS ORDERED: ONDANSETRON 4 MG ODT TABLET PO SCH (09:12)
[2017-03-12] MEDS ORDERED: FENTANYL PF 100MCG/2ML VIAL IVP PRN (09:12)
[2017-03-12] MEDS ORDERED: ONDANSETRON HCL IV 4 MG/2 ML VIAL IVP PRN (09:12)
[2017-03-12] MEDS ORDERED: PROMETHAZINE HCL 12.5 MG in 0.9 % SODIUM CHLORIDE 100ML 100 ML IVPB PRN (09:12)
[2017-03-12] MEDS ORDERED: ALPRAZOLAM 0.25 MG TABLET PO SCH (09:12)
[2017-03-12] MEDS ORDERED: ESTROGENS CONJUGATED 0.45 MG PO SCH (10:00)
[2017-03-12] MEDS ORDERED: ALPRAZOLAM 0.25 MG TABLET PO PRN (10:35)
[2017-03-12] MEDS: LEVOTHYROXINE SOD 112 MCG TAB PO SCH (11:01)
[2017-03-12] MEDS: METOPROLOL SUCC 25 MG TAB.ER PO SCH (11:02)
--- NOTE | 2017-03-12 12:15 | History & Physical ---
History of Present Illness - Date of Service Date of Service for History & Physical: 03/12/17 - History of Present Illness Admitting Diagnosis: Colitis History of Present Illness: 57 yo female admitted w/ colitis. PMHx of GERD, diverticulosis, arthritis, prolapsed bladder, essential tremor, frequent UTIs and HTN. Abd surgeries: cholecystectomy, bladder sling. Patient admits to diarrhea for the past 24 hours. associated symptoms include lower abdominal cramping/discomfort, nausea and vomiting. In addition, patient reports BRB on toilet paper following multiple episodes of diarrhea. No aggravating factors. Diarrhea resolved with imodium at first. Upon arrival to the ED, BP 187/90, HR 98, T 97.7. WBC 11.9, N 82. Abd CT: diffuse colonic inflammation. Stool studies ordered. Promethazine & Zofran given for nausea. Patient started on IVF's & admitted under observation for further medical management. Patient denies any h/o UC/Crohn's or CRC. Patient's father has a h/o UC. Patient's last colonoscopy > 5 years ago w/ Dr. [place] [facility] [place] takes mobic daily for arthritis. No sick contacts or recent travel. Denies any recent antibiotic use. H/o HTN. Travel Screening - Travel/Exposure Within Last 30 Days Have you traveled within the last 30 days?: No - Travel/Exposure Within Last Year Have you traveled outside the [place] in the last year?: Yes Location Detail:: [place], [place] - Additonal Travel Details Have you been exposed to anyone with a communicable illness?: No - Travel Symptoms Symptom Screening: None Review of Systems Constitutional: Denies: Chills, Fever, Malaise, Night sweats Eyes: Denies: Eye discharge, Eye pain ENT: Denies: Congestion, Ear pain, Epistaxis Respiratory: Denies: Cough, Dyspnea Cardiovascular: Denies: Chest pain, Dyspnea on exertion Endocrine: Denies: Fatigue, Heat or cold intolerance Gastrointestinal: Reports: Abdominal pain (lower abd cramping), Diarrhea, Nausea. Denies: Vomiting Genitourinary: Denies: Incontinence, Retention Musculoskeletal: Denies: Arthralgia, Back pain, Gout, Joint swelling Skin: Denies: Bruising, Change in color, Change in hair/nails Neurological: Denies: Abnormal gait, Confusion, Headache, Seizure Psychiatric: Denies: Anxiety Hematological/Lymphatic: Denies: Anemia, Blood Clots Past Medical History - SOCIAL HISTORY Smoking Status: Former smoker Alcohol Use: None Drug Use: None - RESPIRATORY Hx Respiratory Disorders: No - CARDIOVASCULAR Hx Cardio Disorders: No - NEURO Hx Neuro Disorders: Yes Hx Dizziness: Yes (HX VERTIGO) Hx Headaches: Yes (hx of migraines) Hx of Migraines: Yes - GI Hx GI Disorders: Yes Hx Abdominal Pain: Yes (R/T GALLBLADDER) Hx Reflux: Yes Hx Irritable Bowel: Yes Hx Nausea/Vomiting: Yes - Hx Genitourinary Disorders: Yes Hx Bladder Problem: Yes (PROLAPSE) - ENDOCRINE Hx Endocrine Disorders: Yes Hx Thyroid Disease: Yes (hypo) - MUSCULOSKELETAL Hx Musculoskeletal Disorders: Yes Hx Arthritis: Yes (OSTEOARTHRITIS, DDD) - PSYCH Hx Psych Problems: Yes Hx Anxiety: Yes Hx Depression: Yes - HEMATOLOGY/ONCOLOGY Hx Hematology/Oncology Disorders: No Family Medical History Any Significant Family History?: Yes Hx Cancer: Father Hx Diabetes: Mother, Grandparents H&P Meds/Allergies - Allergies Allergies: Allergies Allergy/AdvReac Type Severity Reaction Status Date / Time ciprofloxacin [From Cipro] AdvReac VOMITING Verified 03/12/17 05:40 ciprofloxacin HCl AdvReac VOMITING Verified 03/12/17 05:40 [From Cipro] hydrocodone bitartrate AdvReac VOMITING Verified 03/12/17 05:40 [From Vicodin] morphine AdvReac VOMITING Verified 03/12/17 05:40 Opioids - Morphine Analogues AdvReac VOMITING Verified 03/12/17 05:40 - Home Medications Home Medications Medication Instructions Recorded Confirmed Last Taken Alprazolam [Xanax] 0.25 mg PO Q8H PRN 03/12/17 03/12/17 Unknown Calcium Carb/D3/Magnesium/Zinc 1 each PO DAILY 03/12/17 03/12/17 Unknown [Abisai Mag Zinc + D Tablet] Cholecalciferol (Vitamin D3) 1,000 unit PO DAILY 03/12/17 03/12/17 Unknown [Vitamin D3] Cranberry Conc/C/Bacill Coag 1 each PO DAILY 03/12/17 03/12/17 Unknown [Cranberry Tablet] Estradiol [Estradiol] 10 mcg VG ASDIR 03/12/17 03/12/17 Unknown Ibuprofen [Motrin 600Mg] 1,200 mg PO BID PRN 03/12/17 03/12/17 Unknown Levothyroxine Sodium 112 mcg PO DAILYTHY 03/12/17 03/12/17 Unknown Lysine [l-Lysine] 1,000 mg PO DAILY 03/12/17 03/12/17 Unknown Meloxicam [Mobic] 15 mg PO DAILY 03/12/17 03/12/17 Unknown Omeprazole [Prilosec] 20 mg PO QHS 03/12/17 03/12/17 Unknown Promethazine HCl [Phenergan] 25 mg PO BID PRN 03/12/17 03/12/17 Unknown Rosuvastatin Calcium 20 mg PO QHS 03/12/17 03/12/17 Unknown - Active Medications Active Medications: Current Medications Alprazolam (Xanax) 0.25 mg PO Q8H PRN PRN Reason: ANXIETY Fentanyl Citrate () 50 mcg IVP Q4H PRN PRN Reason: Abdominal Pain Sodium Chloride () 1,000 mls @ 0 mls/hr IV .Q0M [facility] PRN Reason: Wide Open Last Admin: 03/12/17 06:11 Dose: 1,000 mls/hr Sodium Chloride () 1,000 mls @ 125 mls/hr IV .Q8H PRN PRN Reason: LARGE VOLUME IV Promethazine HCl 12.5 mg/ (Sodium Chloride) 100.5 mls @ 200 mls/hr IVPB Q6H PRN PRN Reason: NAUSEA Levothyroxine Sodium (Synthroid) 112 mcg PO DAILYTHY [facility] Last Admin: 03/12/17 11:01 Dose: 112 mcg Metoprolol Succinate (Toprol Xl) 25 mg PO DAILY [facility] Last Admin: 03/12/17 11:02 Dose: 25 mg Ondansetron HCl (Zofran) 4 mg IVP Q4H PRN PRN Reason: NAUSEA Pantoprazole Sodium (Protonix) 40 mg PO QHS [facility] Physical Exam - Vital Signs Vital Signs: Vital Signs - Last 24 Hrs Temp Pulse Resp BP Pulse Ox 03/12/17 11:17 88 18 03/12/17 09:12 98.2 F 88 18 170/95 99 - General General Appearance: Alert, Oriented x3, Cooperative, Moderate distress Limitations: No limitations - Head Head exam: Atraumatic, Normocephalic, Normal inspection Head exam detail: negative: Abrasion, Contusion, Armenta's sign, General tenderness, Hematoma, Laceration - Eye Eye exam: Normal appearance. negative: Conjunctival injection, Periorbital swelling, Periorbital tenderness, Scleral icterus - ENT Ear exam: negative: Auricular hematoma, Auricular trauma Nasal Exam: negative: Active bleeding, Discharge, Dried blood, Foreign body Mouth exam: negative: Drooling, Laceration, Tongue elevation - Neck Neck exam: Normal inspection. negative: Meningismus, Tenderness - Respiratory Respiratory exam: Normal lung sounds bilaterally. negative: Rales, Respiratory distress, Rhonchi, Stridor - Cardiovascular Cardiovascular Exam: Regular rate, Normal rhythm, Normal heart sounds - GI/Abdominal GI/Abdominal exam: Soft, Tenderness (mild, TTP on examination, no rebound or guarding is present. L & R lower Quads.). negative: Rebound, Rigid - Rectal Rectal exam: Deferred - exam: Deferred - Extremities Extremities exam: Normal inspection. negative: Calf tenderness, Pedal edema, Tenderness - Back Back exam: Denies: CVA tenderness (R), CVA tenderness (L) - Neurological Neurological exam: Alert, Normal gait, Oriented X3 - Psychiatric Psychiatric exam: Normal affect, Normal mood - Skin Skin exam: Normal color. negative: Abrasion Type of lesion: negative: abrasion Results - Labs Result Diagrams: 03/12/17 06:09 03/12/17 06:09 VTE H&P Assessment - Risk for VTE Risk for VTE: Yes Risk Level: Low Risk Assessment Date: 03/12/17 ( ) Risk Assessment Time: 11:00 VTE Orders Placed or Will Be Placed: Yes Plan - Detailed Diagnosis and Plan (1) Colitis Current Visit: Yes Status: Acute Base Code: K52.9 - NONINFECTIVE GASTROENTERITIS AND COLITIS, UNSPECIFIED Comment: 03/12- infectious vs. inflammatory vs. collagenous vs. ischemic vs. other? - CTA: diffuse colitis - WBC normal, afebrile - will order CRP, ESR - avoid NSAIDS - await final stool study results - cont IVFs - monitor BP. May need to add additional anti hypertensive - consider GI referral as outpatient. (2) DVT prophylaxis Current Visit: Yes Status: Acute Base Code: [id number] - Comment: 03/12- SCD WIB and continue ambulation as tolerated. (3) Full code status Current Visit: Yes Status: Acute Base Code: Z78.9 - OTHER SPECIFIED HEALTH STATUS Comment: 03/12- pt is full code
[2017-03-12] MEDS: 0.9 % SODIUM CHLORIDE 1000ML 1,000 ML IV PRN ×2 (13:40→21:14)
[2017-03-12] MEDS: ACETAMINOPHEN 500 MG TABLET PO PRN ×2 (16:41→21:11)
[2017-03-12] MEDS ORDERED: PANTOPRAZOLE SODIUM 40 MG TABLET PO SCH (22:00)
[2017-03-13] MEDS: 0.9 % SODIUM CHLORIDE 1000ML 1,000 ML IV PRN (05:32)
[2017-03-13] MEDS: LEVOTHYROXINE SOD 112 MCG TAB PO SCH (06:26)
[2017-03-13 06:29] LABS: BASO % 0.5 % (0-6); EOS % 0.7 % (0-6); GRAN % 60.2 % (47-80); HEMOGLOBIN 12.1 gm/dl (11.6-16.0); LYMPH % 33.5 % (16-45); MEAN CELL VOLUME 89.4 fl (81-97); MEAN CORPUSCULAR HEMOGLOBIN 29.2 pg (27-33); MEAN CORPUSCULAR HGB CONC 32.7 g/dl (32-36); MEAN PLATELET VOLUME 10.3 fl (7.4-10.4); MONO % 5.1 % (0-9); PLATELET COUNT 237 K/uL (130-400); RED BLOOD COUNT 4.14 M/uL (3.80-5.40); RED CELL DISTRIBUTION WIDTH 13.4 % (11.5-14.5); WHITE BLOOD COUNT W/O DIFF 6.1 K/uL (4.2-12.2)
[2017-03-13 06:42] LABS: BLOOD UREA NITROGEN 8 mg/dL (6-20); C-REACTIVE PROTEIN 0.3 mg/L (<5.0); CREATININE 0.7 mg/dL (0.5-0.9); EST GLOMERULAR FILTRATION RATE > 60 mL/min; GLUCOSE,RANDOM 114 mg/dL (74-109)
[2017-03-13 07:06] LABS: ERYTHROCYTE SEDIMENTATION RATE 5 mm/hr (0-30)
--- NOTE | 2017-03-13 07:44 | CT SCAN REPORT ---
EXAM: CT OF THE ABDOMEN AND PELVIS WITH CONTRAST HISTORY: PAIN, NAUSEA AND VOMITING. TECHNIQUE: Contrast enhanced helical CT examination of the abdomen and pelvis was performed including delayed images through the kidneys with 90 ml of Omnipaque 300 utilized. Comparison: CT of the abdomen and pelvis with contrast dated 10/02/16. FINDINGS: The lung bases are clear with the exception of minimal linear scarring versus atelectasis in the anterior aspect of each lung base. No pleural or pericardial effusion. The liver, spleen, pancreas, adrenal glands, and kidneys are normal in appearance. The gallbladder is surgically absent. No kiley biliary ductal dilatation is seen. The portal vein is patent. The central mesenteric vasculature appears patent. There is mild atherosclerosis without aneurysmal dilatation of the abdominal aorta nor iliac arteries. No pelvic mass, lymphadenopathy or free pelvic fluid. The uterus is surgically absent. A punctate calcification is again noted in the anterior bladder wall near the dome, stable. The appendix is visualized and normal in appearance. Mild occasional diverticula are scattered within the colon without definite evidence of focal diverticulitis. There is apparent mild diffuse wall thickening of the colon to the level of the rectum. While this may relate to lack of distention, mild colitis cannot be excluded. No lytic or blastic bone lesion is seen. There are degenerative changes scattered throughout the visualized spine most pronounced at the L4-L5 level where they are moderate to advanced. IMPRESSION: 1. APPARENT MILD DIFFUSE WALL THICKENING OF THE COLON. WHILE THIS MAY RELATE TO INCOMPLETE DISTENTION, MILD DIFFUSE COLITIS CANNOT BE EXCLUDED. MILD COLONIC DIVERTICULOSIS. 2. MINIMAL LINEAR ATELECTASIS VERSUS SCARRING IN THE ANTERIOR LUNG BASES. NOT MENTIONED ABOVE IS A 3 MM CALCIFIED GRANULOMA IN THE ANTERIOR ASPECT OF THE RIGHT LOWER LOBE. JOB NUMBER: [id number] [facility]
[2017-03-13] MEDS: METOPROLOL SUCC 25 MG TAB.ER PO SCH (10:41)
--- NOTE | 2017-03-13 12:51 | Discharge Note ---
VTE H&P Assessment - Risk for VTE Risk for VTE: Yes Risk Level: Low Risk Assessment Date: 03/12/17 ( ) Risk Assessment Time: 11:00 VTE Orders Placed or Will Be Placed: No VTE Reason for No Prophylaxis: Not Indicated (patient going home and changed to observation) Discharge Medications - Discharge Medications Prescriptions: Dicyclomine HCl [Bentyl] 10 mg PO Q8H #30 cap Home Medications: Ambulatory Orders Calcium Carb/D3/Magnesium/Zinc [Abisai Mag Zinc + D Tablet] 1 each PO DAILY [Last Taken Unknown] Cholecalciferol (Vitamin D3) [Vitamin D3] 1,000 unit PO DAILY 03/12/17 [Last Taken Unknown] Cranberry Conc/C/Bacill Coag [Cranberry Tablet] 1 each PO DAILY 03/12/17 [Last Taken Unknown] Estradiol 10 mcg VG ASDIR 03/12/17 [Last Taken Unknown] Levothyroxine Sodium 112 mcg PO DAILYTHY 03/12/17 [Last Taken Unknown] Lysine [l-Lysine] 1,000 mg PO DAILY 03/12/17 [Last Taken Unknown] Omeprazole [Prilosec] 20 mg PO QHS 03/12/17 [Last Taken Unknown] Promethazine HCl [Phenergan] 25 mg PO BID PRN 03/12/17 [Last Taken Unknown] Rosuvastatin Calcium 20 mg PO QHS 03/12/17 [Last Taken Unknown] Acetaminophen [Tylenol 500Mg Tab] 500 mg PO Q4H PRN 03/13/17 [Last Taken Unknown ] Dicyclomine HCl [Bentyl] 10 mg PO Q8H #30 cap 03/13/17 [Last Taken Unknown] Discharge Note - Date Date of Discharge Note: 03/13/17 Disposition: Home, Self-Care Condition: (1) Good Additional Instructions: follow up with Dr Haile May 17 7:15 am [facility] Care follow up with Susan in the [facility] will need follow up on the RLL lung nodule seen on the CT scan of abd. advance diet as tolerated Referrals: ARACELIS BURGESS M.D. [Primary Care Provider] - Forms: Patient Portal Access Activity at Discharge: Increase Activity as Tolerated Diet at Discharge: Advance to Usual Diet
--- NOTE | 2017-03-15 13:20 | Discharge Summary ---
DATE OF ADMISSION: 03/12/2017 DATE OF DISCHARGE: 03/13/2017 at 1:14 p.m. DISCHARGE DIAGNOSES: 1. Acute gastroenteritis. 2. Abnormal CT scan with mildly thickened colon and a 3 mm calcified granuloma, right lower lung, which needs further followup. 3. History of prolapsed bladder. 4. History of GERD. 5. History of hypercholesterolemia. 6. History of hypothyroidism. 7. History of osteoarthritis. ATTENDING PHYSICIAN: Art Chicas DO REASON FOR HOSPITALIZATION: This 57-year-old female developed diarrhea approximately 24 hours before she came to the Emergency Department. Profuse diarrhea. She is having cramping of her abdomen, which forced her bladder to prolapse further, and she is having difficulty urinating. She had a CAT scan performed in the Emergency Department that showed mild thickening of the colon, possible colitis. Could also relate to incomplete distention. Mild colonic diverticulosis. She also has an incidental 3 mm calcified granuloma of the anterior right lower lobe. LABORATORY: Her laboratory analysis is unremarkable. WBC ix 6100. It was 11,900 in the Emergency Department. Her chemistries, sodium was 133 on discharge, 141 in the Emergency Department. Potassium was 3.6. BUN is 8. Creatinine is 0.7. Essentially unremarkable labs. THERAPY PROVIDED: Patient was given IV fluids and her pain resolved. She has serial exams done. Initially, patient was admitted to Dr. Cota's group with Susan seeing the patient. H&P done by Susan. I took over today and discharged the patient. She is feeling 100% better. No abdominal pain. Eating full liquid diet without problems. HOSPITAL COURSE: Gradually improved. CONDITION ON DISCHARGE: Much improved. No abdominal pain. Eating full liquid diet. Will follow up with GI because of the thickened colon. GI appointment is 05/17/2017. Also follow with the [facility], [facility], in approximately 1 week. DISCHARGE INSTRUCTIONS: Continue the home medications, except she is no longer taking Xanax. I recommend she stop the Motrin and Mobic because this could inflame the colon, at least for a week, and then use Tylenol or Bentyl in place if she is having abdominal cramping. Prescription of Bentyl will be given to the patient one 3 times a day p.r.n. abdominal cramping or discomfort as she increases her diet. HOME MEDICATIONS: Omeprazole 20 mg daily, estradiol cream vaginally twice a week. She has Phenergan p.r.n. available. She has not used it in a long time. She is to stop the Xanax. She has not used that in a long time. I recommend she stop the Mobic. Vitamin D3 1000 units daily, lysine 1000 mg daily, Crestor 20 mg at bedtime, levothyroxine 112 mcg daily, cranberry tablets 1 a day, metoprolol succinate for central tremors 25 mg a day, methylamine hippurate 1 gram daily. MTDD
== END 2017-03-13 14:04 | disposition home or self-care (01) | DRG 392 ==
LOC: ER 05:35 → MEDSURG 08:46 → OBSVTOIN 08:46
PROVIDERS: ADMIT Internal Medicine; ATTEND Internal Medicine
DX: K52.9 Noninfective gastroenteritis and colitis, unspecified (principal); Z87.891 Personal history of nicotine dependence; E78.00 Pure hypercholesterolemia, unspecified; E03.9 Hypothyroidism, unspecified; M19.90 Unspecified osteoarthritis, unspecified site; R93.3 Abnormal findings on diagnostic imaging of other parts of digestive tract; R91.8 Other nonspecific abnormal finding of lung field
CPT/HCPCS: 74177; 80048; 80053; 81001; 83690; 85025; 85027; 85651; 86140; 87425; 87493; 89055; 96361; 96374; 96375; 99223; 99239; 99285; J2405; J2550; J7030

== ENCOUNTER 2017-07-20 18:56 | Emergency (ER) | payer SELFPAY ==
--- NOTE | 2017-07-20 19:53 | Emergency Department Record ---
History of Present Illness - General Chief Complaint: Knee injury Stated Complaint: FALL INJURY Time Seen by Provider: 07/20/17 19:27 Source: Patient Mode of Arrival: Wheelchair Limitations: No limitations - History of Present Illness Initial Comments: pt slipped at [employer] restaurant twisting knee. unable to bear weight Complaint: Knee injury Onset/Timin -: Minutes(s) Injury: Knee: Right Type of Injury: Blunt, Inversion Place: Other Severity: Mild Improves With: Nothing Worsens With: Nothing Context: Fall, Walking Associated Symptoms: Able to partially bear weight - Related Data Previous Rx's Medication Instructions Recorded Acetaminophen [Tylenol 500Mg Tab] 500 mg PO Q4H PRN 03/13/17 Acetaminop W/ Codeine 300/30Mg 1 tab PO Q6H #10 tab 07/20/17 [Tylenol #3] Allergies Allergy/AdvReac Type Severity Reaction Status Date / Time amoxicillin AdvReac Mild nausea Verified 07/20/17 19:15 ciprofloxacin [From Cipro] AdvReac VOMITING Verified 07/20/17 19:15 ciprofloxacin HCl AdvReac VOMITING Verified 07/20/17 19:15 [From Cipro] hydrocodone bitartrate AdvReac VOMITING Verified 07/20/17 19:15 [From Vicodin] morphine AdvReac VOMITING Verified 07/20/17 19:15 Opioids - Morphine Analogues AdvReac VOMITING Verified 07/20/17 19:15 Travel Screening - Travel/Exposure Within Last 30 Days Have you traveled within the last 30 days?: No - Travel/Exposure Within Last Year Have you traveled outside the [place] in the last year?: No - Additonal Travel Details Have you been exposed to anyone with a communicable illness?: No - Travel Symptoms Symptom Screening: None Review of Systems Reviewed: No additional complaints except as noted below Constitutional: Reports: As per HPI. Denies: Chills, Fever, Malaise, Night sweats, Weakness, Weight change Eyes: Reports: As per HPI. Denies: Eye discharge, Eye pain, Photophobia, Vision change ENT: Reports: As per HPI. Denies: Congestion, Dental pain, Ear pain, Epistaxis , Hearing loss, Throat pain Respiratory: Reports: As per HPI. Denies: Cough, Dyspnea, Hemoptysis, Stridor, Wheezes Cardiovascular: Reports: As per HPI. Denies: Arrhythmia, Chest pain, Dyspnea on exertion, Edema, Murmurs, Orthopnea, Palpitations, Paroxysmal nocturnal dyspnea, Rheumatic Fever, Syncope Endocrine: Reports: As per HPI. Denies: Fatigue, Heat or cold intolerance, Polydipsia, Polyuria Gastrointestinal: Reports: As per HPI. Denies: Abdominal pain, Constipation, Diarrhea, Hematemesis, Hematochezia, Melena, Nausea, Vomiting Genitourinary: Reports: As per HPI. Denies: Abnormal menses, Discharge, Dyspareunia, Dysuria, Frequency, Hematuria, Incontinence, Retention, Urgency Musculoskeletal: Reports: As per HPI. Denies: Arthralgia, Back pain, Gout, Joint swelling, Myalgia, Neck pain Skin: Reports: As per HPI. Denies: Bruising, Change in color, Change in hair/ nails, Lesions, Pruritus, Rash Neurological: Reports: As per HPI. Denies: Abnormal gait, Confusion, Headache, Numbness, Paresthesias, Seizure, Tingling, Tremors, Vertigo, Weakness Psychiatric: Reports: As per HPI. Denies: Anxiety, Auditory hallucinations, Depression, Homicidal thoughts, Suicidal thoughts, Visual hallucinations Hematological/Lymphatic: Reports: As per HPI. Denies: Anemia, Blood Clots, Easy bleeding, Easy bruising, Swollen glands Past Medical History - SOCIAL HISTORY Smoking Status: Former smoker Alcohol Use: None Drug Use: None - RESPIRATORY Hx Respiratory Disorders: No - CARDIOVASCULAR Hx Cardio Disorders: No - NEURO Hx Neuro Disorders: Yes Hx Dizziness: Yes (HX VERTIGO) Hx Headaches: Yes (hx of migraines) Hx of Migraines: Yes - GI Hx GI Disorders: Yes Hx Abdominal Pain: Yes (R/T GALLBLADDER) Hx Reflux: Yes Hx Irritable Bowel: Yes Hx Nausea/Vomiting: Yes - Hx Genitourinary Disorders: Yes Hx Bladder Problem: Yes (PROLAPSE) - ENDOCRINE Hx Endocrine Disorders: Yes Hx Thyroid Disease: Yes (hypo) - MUSCULOSKELETAL Hx Musculoskeletal Disorders: Yes Hx Arthritis: Yes (OSTEOARTHRITIS, DDD) - PSYCH Hx Psych Problems: Yes Hx Anxiety: Yes Hx Depression: Yes - HEMATOLOGY/ONCOLOGY Hx Hematology/Oncology Disorders: No Family Medical History Any Significant Family History?: No Hx Cancer: Father Hx Diabetes: Mother, Grandparents Physical Exam - General General Appearance: Alert, Oriented x3, Cooperative, Mild distress - Head Head exam: Normal inspection - Eye Eye exam: Normal appearance, PERRL, EOMI Pupils: Normal accommodation - ENT ENT exam: Normal exam, Mucous membranes moist, Normal external ear exam, Normal orophraynx Ear exam: Normal external inspection. negative: External canal tenderness Nasal Exam: Normal inspection. negative: Discharge, Sinus tenderness Mouth exam: Normal external inspection, Tongue normal Teeth exam: Normal inspection. negative: Dental caries Throat exam: Normal inspection. negative: Tonsillar erythema, Tonsillar exudate - Neck Neck exam: Normal inspection, Full ROM. negative: Tenderness - Respiratory Respiratory exam: Normal lung sounds bilaterally. negative: Respiratory distress - Cardiovascular Cardiovascular Exam: Regular rate, Normal rhythm, Normal heart sounds - GI/Abdominal GI/Abdominal exam: Soft, Normal bowel sounds. negative: Tenderness - Rectal Rectal exam: Deferred - exam: Deferred - Extremities Extremities exam: Normal inspection, Normal capillary refill, Tenderness (right knee). negative: Full ROM - Back Back exam: Reports: Normal inspection, Full ROM. Denies: Muscle spasm, Rash noted, Tenderness - Neurological Neurological exam: Alert, CN II-XII intact, Normal gait, Oriented X3 - Psychiatric Psychiatric exam: Normal affect, Normal mood - Skin Skin exam: Dry, Intact, Normal color, Warm Course Vital Signs 07/20/17 19:07 Temperature 97.9 F Pulse Rate 87 Respiratory 20 Rate Blood Pressure 115/81 Pulse Ox 98 Disposition Disposition: Discharge Clinical Impression: Ligament tear of lower extremity Disposition: Home, Self-Care Condition: (1) Good Instructions: Knee Immobilizer (ED), Knee Sprain (ED) Additional Instructions: follow up with dr echols. ice and elevate. return sooner if worse. Prescriptions: Acetaminop W/ Codeine 300/30Mg [Tylenol #3] 1 tab PO Q6H #10 tab Referrals: BENNETT ECHOLS [DOCTOR OF OSTEOPATH] - [facility] [Provider Group] Quality - Quality Measures Quality Measures: N/A - Blood Pressure Screening Does Patient Have Any of the Following: No Blood Pressure Classification: Pre-Hypertensive BP Reading Systolic Measurement: 115 Diastolic Measurement: 81 Screening for High Blood Pressure: < Pre-Hypertensive BP, F/U Documented > [ [id number]] Pre-Hypertensive Follow-up Interventions: Follow-up with rescreen every year.
[2017-07-20] MEDS ORDERED: ACETAMINOPHEN W/ CODEINE 300MG/30MG TABLET PO ONE (20:46)
--- NOTE | 2017-07-21 12:09 | RADIOLOGY REPORT ---
DATE: 07/20/2017 at 2005 hours. EXAM: RIGHT KNEE. HISTORY: Right knee pain. TECHNIQUE: Three views of the right knee are obtained. FINDINGS: There is mild medial and lateral osteophytosis. There are mild patellofemoral osteophytes. There are no fractures. There is no evidence of effusion. Bone density is normal. IMPRESSION: DEGENERATIVE JOINT DISEASE OF THE RIGHT KNEE WITHOUT EVIDENCE OF FRACTURE. JOB NUMBER: [id number] [facility]
== END 2017-07-20 21:19 | disposition home or self-care (01) ==
LOC: ER 18:56
DX: S83.91XA Sprain of unspecified site of right knee, initial encounter (principal); W01.10XA Fall on same level from slipping, tripping and stumbling with subsequent striking against unspecified object, initial encounter; Y92.511 Restaurant or cafe as the place of occurrence of the external cause; Z87.891 Personal history of nicotine dependence
CPT/HCPCS: 99283

== ENCOUNTER 2017-07-21 07:25 | Emergency (ER) | payer SELFPAY ==
[2017-07-21] MEDS ORDERED: ONDANSETRON 4 MG ODT TABLET SL ONE (07:36)
--- NOTE | 2017-07-21 07:50 | Emergency Department Record ---
History of Present Illness - General Chief complaint: Extremity Problem Stated complaint: LEFT ARM PAIN FROM FALL LAST PM Time Seen by Provider: 07/21/17 07:31 Source: Patient Mode of Arrival: Wheelchair Limitations: No limitations - History of Present Illness Initial comments: The patient is here due to a fall last evening. She fell and twisted her R knee last evening and also landed on her L arm. The arm hurt minimally last evening but is worse this AM. The main pain is over the L elbow and the L wrist is only very minimally painful. The patient was seen here in the ER and had a neg R knee xray and was discharged with a knee immobilizer and Tylenol # 3. Since she has taken the pain medicine she has been nauseated and has vomited. There was no hx of head injury, neck pain, headache or nausea after the fall. The patient does not take any blood thinners. MD Complaint: Extremity pain Onset/Timin -: Days(s) Location: Left, Arm, Elbow, Forearm History of Same: Yes Radiation: Distal Severity scale (1-10): 8 Quality: Sharp, Other Consistency: Constant Improves with: Immobilization Worsens with: Weight bearing Associated Symptoms: Denies other symptoms - Related Data Previous Rx's Medication Instructions Recorded Acetaminophen [Tylenol 500Mg Tab] 500 mg PO Q4H PRN 03/13/17 Acetaminop W/ Codeine 300/30Mg 1 tab PO Q6H #10 tab 07/20/17 [Tylenol #3] Ondansetron [Zofran Odt] 4 mg SL .Q4-6H PRN #12 tab.rapdis 07/21/17 Allergies Allergy/AdvReac Type Severity Reaction Status Date / Time amoxicillin AdvReac Mild nausea Verified 07/20/17 19:15 ciprofloxacin [From Cipro] AdvReac VOMITING Verified 07/20/17 19:15 ciprofloxacin HCl AdvReac VOMITING Verified 07/20/17 19:15 [From Cipro] hydrocodone bitartrate AdvReac VOMITING Verified 07/20/17 19:15 [From Vicodin] morphine AdvReac VOMITING Verified 07/20/17 19:15 Opioids - Morphine Analogues AdvReac VOMITING Verified 07/20/17 19:15 Travel Screening - Travel/Exposure Within Last 30 Days Have you traveled within the last 30 days?: No Review of Systems Constitutional: Denies: Chills, Fever Past Medical History - SOCIAL HISTORY Smoking Status: Former smoker - RESPIRATORY Hx Respiratory Disorders: No - CARDIOVASCULAR Hx Cardio Disorders: No - NEURO Hx Neuro Disorders: Yes Hx Dizziness: Yes (HX VERTIGO) Hx Headaches: Yes (hx of migraines) Hx of Migraines: Yes - GI Hx GI Disorders: Yes Hx Abdominal Pain: Yes (R/T GALLBLADDER) Hx Reflux: Yes Hx Irritable Bowel: Yes Hx Nausea/Vomiting: Yes - Hx Genitourinary Disorders: Yes Hx Bladder Problem: Yes (PROLAPSE) - ENDOCRINE Hx Endocrine Disorders: Yes Hx Thyroid Disease: Yes (hypo) - MUSCULOSKELETAL Hx Musculoskeletal Disorders: Yes Hx Arthritis: Yes (OSTEOARTHRITIS, DDD) - PSYCH Hx Psych Problems: Yes Hx Anxiety: Yes Hx Depression: Yes - HEMATOLOGY/ONCOLOGY Hx Hematology/Oncology Disorders: No Family Medical History Any Significant Family History?: Yes Hx Cancer: Father Hx Diabetes: Mother, Grandparents Physical Exam - General General Appearance: Alert, Oriented x3, Cooperative, No acute distress - Head Head exam: Atraumatic, Normocephalic, Normal inspection - Eye Eye exam: Normal appearance, PERRL, EOMI - Neck Neck exam: Normal inspection, Full ROM. negative: Tenderness - Respiratory Respiratory exam: Normal lung sounds bilaterally. negative: Respiratory distress - Cardiovascular Cardiovascular Exam: Regular rate, Normal rhythm, Normal heart sounds - Extremities Extremities exam: Normal inspection (The L arm appears normal with no swelling, bruising, or abrasions. The L wrist has no swelling, bruisin, or redness appreciated.), Full ROM (There is full ROM of the L elbow and wrist with pain.) , Normal capillary refill, Tenderness (There is mod tenderness to palpation of the L elbow and very mild tenderness to the L wrist. The L arm is NVI.). negative: Joint swelling - Neurological Neurological exam: Abnormal gait (Due to the R knee Immobilizer.), Alert. negative: Altered, Motor sensory deficit Course Vital Signs 07/21/17 07:26 Temperature 97.9 F Pulse Rate 87 Respiratory 20 Rate Blood Pressure 145/92 Pulse Ox 99 - Reevaluation(s) Reevaluation #1: I did explain to the patient the xray results. There does seem to be an avulsion of a piece of bone volarly on the wrist but clinically it must be chronic. The wrist is not actually significantly tender and the elbow seems to be the issues. The patient did have an ulnar release surgery on the L elbow in the past also. She is to ice the painful areas and see Dr. Gill later this week as planned. 07/21/17 08:57 Reevaluation #2: The patient was doing very well at discharge and had no MOURA, neck pain, or nausea. She does have a hx of nausea and vomiting with narcotic medicines so I am sure the issue with nausea was do to the Tylenol # 3 and not a head injury. 07/21/17 09:03 Medical Decision Making - Data Complexity MDM Data: X-Ray Ordered and/or Reviewed - Radiology Data Radiology results: Report reviewed (L elbow: Neg for any acute injury. L wrist: No acute injury, possible avulsion anterior wrist but probably old.) Disposition Disposition: Discharge Clinical Impression: Elbow pain, left Disposition: Home, Self-Care Condition: (2) Stable Instructions: Elbow Sprain (ED) Additional Instructions: Please use the Zofran if needed and take Tylenol for pain. Ice the L elbow as much as possible and see Dr. Gill later this week as planned. Return to the ER for any worsening pain, headache, fever, or vomiting. Prescriptions: Ondansetron [Zofran Odt] 4 mg SL .Q4-6H PRN #12 tab.rapdis PRN Reason: Nausea Forms: Patient Portal Access Time of Disposition: 08:53 Quality - Quality Measures Quality Measures: N/A - Blood Pressure Screening View Details: Yes Does Patient Have Any of the Following: No Blood Pressure Classification: Pre-Hypertensive BP Reading Systolic Measurement: 145 Diastolic Measurement: 89 Screening for High Blood Pressure: < First Hypertensive BP, F/U Documented > [ G8950] First Hypertensive Follow-up Interventions: Referral to alternative/primary care provider.
[2017-07-21] MEDS ORDERED: ACETAMINOPHEN 325 MG TAB PO ONE (08:18)
--- NOTE | 2017-07-21 21:21 | RADIOLOGY REPORT ---
EXAM: ELBOW, LEFT 3 VIEWS HISTORY: WORSENING LEFT ELBOW PAIN. FALL ONE DAY PRIOR. TECHNIQUE: Left elbow, three views. COMPARISON: 10/28/15. FINDINGS: There is overall mild scattered soft tissue swelling. No elbow joint effusion. No fracture or malalignment. IMPRESSION: SOFT TISSUE SWELLING WITHOUT ACUTE OSSEOUS ABNORMALITY. JOB NUMBER: [id number] [facility]
--- NOTE | 2017-07-21 21:22 | RADIOLOGY REPORT ---
EXAM: WRIST, LEFT 3 VIEWS HISTORY: FALL. TECHNIQUE: Left wrist, four views. FINDINGS: Bones are osteopenic. There is a 3 mm calcification volar carpal region, which may relate to an acute or chronic avulsive injury. Correlate for point tenderness. No clearly acute osseous abnormality is seen. IMPRESSION: SMALL CALCIFIC FOCUS VOLAR CARPAL REGION, ABOVE. NO CLEARLY ACUTE PROCESS. JOB NUMBER: [id number] [facility]
== END 2017-07-21 09:05 | disposition home or self-care (01) ==
LOC: ER 07:25
DX: G89.11 Acute pain due to trauma (principal); M25.522 Pain in left elbow; M25.532 Pain in left wrist; R11.2 Nausea with vomiting, unspecified; W01.10XA Fall on same level from slipping, tripping and stumbling with subsequent striking against unspecified object, initial encounter; Y92.511 Restaurant or cafe as the place of occurrence of the external cause; Z87.891 Personal history of nicotine dependence
CPT/HCPCS: 99283

== ENCOUNTER 2017-12-09 09:38 | Emergency (ER) | payer OTHER ==
--- NOTE | 2017-12-09 09:58 | Emergency Department Record ---
History of Present Illness - General Chief complaint: Female Urogenital Problem Stated complaint: UTI Time Seen by Provider: 12/09/17 09:57 Source: Patient Mode of Arrival: Ambulatory Limitations: No limitations - History of Present Illness Initial comments: The patient is here due to a 3 day hx of dysuria and lower abdominal cramping and pain. She has a recent hx of frequent UTI's and now feels she has another one. She denies any fever, chills, nausea or vomiting. The patient did just finish a course of keflex. MD Complaint: Dysuria Onset/Timin -: Days(s) Severity: Moderate Severity scale (1-10): 5 Quality: Aching, Cramping - Related Data Previous Rx's Medication Instructions Recorded Nitrofurantoin [place] [Macrobid] 100 mg PO BID #14 capsule 12/09/17 Allergies Allergy/AdvReac Type Severity Reaction Status Date / Time amoxicillin AdvReac Mild nausea Verified 12/09/17 09:50 ciprofloxacin [From Cipro] AdvReac VOMITING Verified 12/09/17 09:50 ciprofloxacin HCl AdvReac VOMITING Verified 12/09/17 09:50 [From Cipro] hydrocodone bitartrate AdvReac VOMITING Verified 12/09/17 09:50 [From Vicodin] morphine AdvReac VOMITING Verified 12/09/17 09:50 Opioids - Morphine Analogues AdvReac VOMITING Verified 12/09/17 09:50 Travel Screening - Travel/Exposure Within Last 30 Days Have you traveled within the last 30 days?: No - Travel/Exposure Within Last Year Have you traveled outside the [place] in the last year?: No - Additonal Travel Details Have you been exposed to anyone with a communicable illness?: No - Travel Symptoms Symptom Screening: None Review of Systems Constitutional: Reports: Malaise. Denies: Chills, Fever Eyes: Denies: Eye discharge ENT: Denies: Congestion Respiratory: Denies: Cough Genitourinary: Reports: Dysuria Past Medical History - SOCIAL HISTORY Smoking Status: Former smoker Alcohol Use: None Drug Use: None - RESPIRATORY Hx Respiratory Disorders: No - CARDIOVASCULAR Hx Cardio Disorders: No - NEURO Hx Neuro Disorders: Yes Hx Dizziness: Yes (HX VERTIGO) Hx Headaches: Yes (hx of migraines) Hx of Migraines: Yes - GI Hx GI Disorders: Yes Hx Abdominal Pain: Yes (R/T GALLBLADDER) Hx Reflux: Yes Hx Irritable Bowel: Yes Hx Nausea/Vomiting: Yes - Hx Genitourinary Disorders: Yes Hx Bladder Problem: Yes (PROLAPSE) - ENDOCRINE Hx Endocrine Disorders: Yes Hx Thyroid Disease: Yes (hypo) - MUSCULOSKELETAL Hx Musculoskeletal Disorders: Yes Hx Arthritis: Yes (OSTEOARTHRITIS, DDD) - PSYCH Hx Psych Problems: Yes Hx Anxiety: Yes Hx Depression: Yes - HEMATOLOGY/ONCOLOGY Hx Hematology/Oncology Disorders: No Family Medical History Any Significant Family History?: Yes Hx Cancer: Father Hx Diabetes: Mother, Grandparents Physical Exam - General General Appearance: Alert, Oriented x3, Cooperative, No acute distress - Head Head exam: Atraumatic, Normocephalic, Normal inspection - Eye Eye exam: Normal appearance, PERRL - Neck Neck exam: Normal inspection, Full ROM. negative: Tenderness - Respiratory Respiratory exam: Normal lung sounds bilaterally. negative: Respiratory distress - Cardiovascular Cardiovascular Exam: Regular rate, Normal rhythm, Normal heart sounds - GI/Abdominal GI/Abdominal exam: Soft, Tenderness (There is mild suprapubic tenderness.). negative: Rebound, Rigid - Extremities Extremities exam: Normal inspection, Full ROM, Normal capillary refill. negative: Tenderness - Back Back exam: Denies: CVA tenderness (R), CVA tenderness (L) - Neurological Neurological exam: Alert, Normal gait. negative: Abnormal gait, Motor sensory deficit - Skin Skin exam: negative: Rash Course Vital Signs 12/09/17 09:39 Temperature 97.7 F Pulse Rate 88 Respiratory 20 Rate Blood Pressure 136/80 Pulse Ox 97 - Reevaluation(s) Reevaluation #1: The patient is doing very well at this time. I did explain the lab results with he and the need for F/U with her Specialist for the recurrent UTI's. 12/09/17 11:20 Medical Decision Making - Data Complexity MDM Data: Labs Ordered and/or Reviewed - Lab Data Result diagrams: 12/09/17 10:07 12/09/17 10:07 Disposition Disposition: Discharge Clinical Impression: Cystitis Disposition: Home, Self-Care Condition: (2) Stable Instructions: Urinary Tract Infection in Women (ED) Additional Instructions: Please drink plenty of fluids and take your Macrobid as directed. Please see your Specialist for your recurrent UTI's this week. Return to the ER for any worsening symptoms. Prescriptions: Nitrofurantoin [place] [Macrobid] 100 mg PO BID #14 capsule Forms: Patient Portal Access Time of Disposition: 11:22 Quality - Quality Measures Quality Measures: N/A - Blood Pressure Screening View Details: Yes Does Patient Have Any of the Following: No Blood Pressure Classification: Pre-Hypertensive BP Reading Systolic Measurement: 136 Diastolic Measurement: 80 Screening for High Blood Pressure: < Pre-Hypertensive BP, F/U Documented > [ G8950] Pre-Hypertensive Follow-up Interventions: Referral to alternative/primary care provider.
[2017-12-09 10:16] LABS: HEMATOCRIT 41.4 % (35.0-47.0); HEMOGLOBIN 13.3 gm/dl (11.6-16.0); MEAN CELL VOLUME 92.6 fl (81-97); MEAN CORPUSCULAR HEMOGLOBIN 29.8 pg (27-33); MEAN CORPUSCULAR HGB CONC 32.1 g/dl (32-36); MEAN PLATELET VOLUME 10.1 fl (7.4-10.4); PLATELET COUNT 275 K/uL (130-400); RED BLOOD COUNT 4.47 M/uL (3.80-5.40); RED CELL DISTRIBUTION WIDTH 13.4 % (11.5-14.5); WHITE BLOOD COUNT W/O DIFF 11.1 K/uL (4.2-12.2)
[2017-12-09 10:24] LABS: PLATELET ESTIMATE NORMAL (NORMAL)
[2017-12-09 10:26] LABS: BLOOD UREA NITROGEN 13 mg/dL (6-20); CREATININE 0.9 mg/dL (0.5-0.9); EST GLOMERULAR FILTRATION RATE > 60 mL/min
[2017-12-09 10:29] LABS: GLUCOSE,RANDOM 133 mg/dL (74-109)
[2017-12-09 11:08] LABS: URINE APPEARANCE SL CLOUDY; URINE BILIRUBIN SMALL (NEGATIVE); URINE COLOR ORANGE; URINE KETONE TRACE (NEGATIVE); URINE PROTEIN 300 mg/dL (NEGATIVE); URINE UROBILINOGEN >8.0 E.U./dL (0.20 - 1.00)
[2017-12-09 11:09] LABS: URINE BLOOD MODERATE-NONHEMOLYZE (NEGATIVE); URINE LEUKOCYTE ESTERASE LARGE (NEGATIVE); URINE NITRITE POSITIVE (NEGATIVE)
[2017-12-09 11:11] LABS: URINE EPITHELIAL CELLS NONE SEEN (FEW); URINE WBC >50 (0-2/hpf)
[2017-12-09 11:12] LABS: URINE BACTERIA 3+
[2017-12-09] MEDS ORDERED: NITROFURANTOIN MONO 100 MG CAPSULE PO ONE (11:13)
== END 2017-12-09 11:32 | disposition home or self-care (01) ==
LOC: ER 09:38
DX: N30.00 Acute cystitis without hematuria (principal); R30.0 Dysuria; R10.30 Lower abdominal pain, unspecified; Z87.891 Personal history of nicotine dependence
CPT/HCPCS: 80048; 81001; 85027; 99283

== ENCOUNTER 2018-01-22 06:36 | Emergency (ER) | payer OTHER ==
[2018-01-22] MEDS ORDERED: 0.9 % SODIUM CHLORIDE 1,000 ML BAG IV ONE ×2 (06:52→07:34)
[2018-01-22 06:54] LABS: HEMOGLOBIN 13.7 gm/dl (11.6-16.0); MEAN CELL VOLUME 91.3 fl (81-97); MEAN CORPUSCULAR HEMOGLOBIN 29.8 pg (27-33); MEAN CORPUSCULAR HGB CONC 32.6 g/dl (32-36); PLATELET COUNT 293 K/uL (130-400); RED CELL DISTRIBUTION WIDTH 13.4 % (11.5-14.5); WHITE BLOOD COUNT W/O DIFF 11.5 K/uL (4.2-12.2)
[2018-01-22] MEDS ORDERED: FENTANYL PF 100MCG/2ML VIAL IVP ONE ×2 (06:57→07:34)
--- NOTE | 2018-01-22 07:01 | Emergency Department Record ---
History of Present Illness - General Chief Complaint: Abdominal Pain Stated Complaint: ABD PAIN Time Seen by Provider: 01/22/18 06:51 Source: Patient Mode of Arrival: Wheelchair Limitations: No limitations - History of Present Illness Initial Comments: 57 yo female presents with abdominal pain. She woke up this morning with nausea , vomiting, and right sided pain. The pain is sharp and cramping. No blood in the vomit. No diarrhea. She did see her doctor yesterday as well as she was seen last at a [facility] in [place]. She started the Levaquin last Sunday. A culture of her urine was sent yesterday and last . She does not have those results. She reports she had an outpatient CT as well. No fever. She reports she has had her gall bladder removed all ready. MD Complaint: Abdominal pain Onset/Timin -: Hour(s) Location: RUQ Radiation: R flank Migration to: R Flank, RUQ Severity: Severe Severity scale (1-10): 8 Quality: Burning, Sharp Consistency: Constant Improves With: Nothing Worsens With: Movement Context: Recent antibiotic use, Other Associated Symptoms: Nausea, Vomiting Treatments Prior to Arrival: Other - Related Data LMP (females 10-50): Unknown Patient : No Home Medications Medication Instructions Recorded Confirmed Last Taken Levofloxacin [Levaquin] 500 mg PO DAILY 01/22/18 01/22/18 01/21/18 Allergies Allergy/AdvReac Type Severity Reaction Status Date / Time amoxicillin AdvReac Mild nausea Unverified 01/21/18 13:35 ciprofloxacin [From Cipro] AdvReac VOMITING Unverified 01/21/18 13:35 ciprofloxacin HCl AdvReac VOMITING Unverified 01/21/18 13:35 [From Cipro] hydrocodone bitartrate AdvReac VOMITING Unverified 01/21/18 13:35 [From Vicodin] morphine AdvReac VOMITING Unverified 01/21/18 13:35 Opioids - Morphine Analogues AdvReac VOMITING Unverified 01/21/18 13:35 Travel Screening - Travel/Exposure Within Last 30 Days Have you traveled within the last 30 days?: No - Travel Symptoms Symptom Screening: Vomiting Review of Systems Constitutional: Denies: Chills, Fever, Weakness Eyes: Denies: Eye discharge, Eye pain, Vision change ENT: Denies: Congestion, Throat pain Respiratory: Denies: Cough Cardiovascular: Denies: Chest pain, Syncope Endocrine: Denies: Fatigue Gastrointestinal: Reports: As per HPI, Abdominal pain, Nausea, Vomiting. Denies : Constipation, Diarrhea, Hematemesis, Hematochezia Genitourinary: Denies: Dysuria, Urgency Musculoskeletal: Denies: Arthralgia, Back pain, Myalgia Skin: Denies: Bruising, Change in color, Rash Neurological: Denies: Headache Psychiatric: Denies: Anxiety Hematological/Lymphatic: Denies: Blood Clots, Easy bleeding, Easy bruising Past Medical History - SOCIAL HISTORY Smoking Status: Former smoker Alcohol Use: None Drug Use: None - RESPIRATORY Hx Respiratory Disorders: No - CARDIOVASCULAR Hx Cardio Disorders: No - NEURO Hx Neuro Disorders: Yes Hx Dizziness: Yes (HX VERTIGO) Hx Headaches: Yes (hx of migraines) Hx of Migraines: Yes - GI Hx GI Disorders: Yes Hx Abdominal Pain: Yes (R/T GALLBLADDER) Hx Reflux: Yes Hx Irritable Bowel: Yes Hx Nausea/Vomiting: Yes - Hx Genitourinary Disorders: Yes Hx Bladder Problem: Yes (PROLAPSE) Hx UTI: Yes (FREQUENT) - ENDOCRINE Hx Endocrine Disorders: Yes Hx Thyroid Disease: Yes (hypo) - MUSCULOSKELETAL Hx Musculoskeletal Disorders: Yes Hx Arthritis: Yes (OSTEOARTHRITIS, DDD) - PSYCH Hx Psych Problems: Yes Hx Anxiety: Yes Hx Depression: Yes - HEMATOLOGY/ONCOLOGY Hx Hematology/Oncology Disorders: No Family Medical History Any Significant Family History?: Yes Hx Cancer: Father Hx Diabetes: Mother, Grandparents Physical Exam - General General Appearance: Alert, Oriented x3, Cooperative, No acute distress - Head Head exam: Atraumatic, Normal inspection - Eye Eye exam: Normal appearance. negative: Conjunctival injection - ENT ENT exam: Normal exam, Mucous membranes moist Ear exam: Normal external inspection Nasal Exam: Normal inspection Mouth exam: Normal external inspection Teeth exam: Normal inspection Throat exam: Normal inspection - Neck Neck exam: Normal inspection, Full ROM. negative: Tenderness - Respiratory Respiratory exam: Normal lung sounds bilaterally. negative: Respiratory distress - Cardiovascular Cardiovascular Exam: Regular rate, Normal rhythm, Normal heart sounds - GI/Abdominal GI/Abdominal exam: Soft, Guarding, Tenderness (tender along the right flank, RUQ but soft) - Rectal Rectal exam: Deferred - exam: Deferred - Extremities Extremities exam: Normal inspection, Full ROM, Normal capillary refill. negative: Tenderness - Back Back exam: Reports: Normal inspection, CVA tenderness (R), Full ROM, Tenderness. Denies: Muscle spasm, Rash noted - Neurological Neurological exam: Alert, Normal gait, Oriented X3 - Psychiatric Psychiatric exam: Normal affect, Normal mood - Skin Skin exam: Dry, Intact, Normal color, Warm Course Vital Signs 01/22/18 06:41 Temperature 98.3 F Pulse Rate 99 H Respiratory 22 Rate Blood Pressure 131/86 Pulse Ox 97 - Reevaluation(s) Reevaluation #1: 01/22/18 07:06 The CBC was reviewed. No acute changes. 01/22/18 07:13 CMP was reviewed. HCO3 21 and AG is 19 otherwise no acute changes. 01/22/18 07:[address] scan from 01/21/18 was reviewed. No acute process. Surgically absent gall bladder and uterus. No renal stones. 01/22/18 08:35 UA is negative 01/22/18 08:37 8 Urine Culture is pending. 01/22/18 08:37 Nausea and pain are much improved. I will try to obtain the culture from [place] of her urine from last week. 01/22/18 08:51 Both the [facility] and her local [facility] were called to obtain the culture from . No answer in either office. Renal US for flank pain ordered. Her CT was normal yesterday. Re-CT very unlikely to be helpful this quickly with unneeded radiation exposure. 01/22/18 09:42 US tech noted 800ml on US. Patient will be catheterized and clinically reassess to see if the discomfort resolves. [facility] lab in [place] was called. No culture results yet. The culture was started at 1900 last night. The UA was a dip that was Large LE and Nitrite. No micro performed. 01/22/18 10:04 The patient informs me she has an appointment with her urologist today. She has had recurrent UTI's urinary incontinence ongoing. She will be sent with a russell and a leg bag. 01/22/18 10:42 Renal US was negative except for 830ml in the bladder 01/22/18 10:56 Russell placed with 1 liter output 01/22/18 11:09 I SW the patient's doctor Dr Kody Reynolds to discuss the recent symptoms, care, test results. She has a follow up appointment at 3pm. The russell will remain until then. Medical Decision Making - Lab Data Result diagrams: 01/22/18 06:45 01/22/18 06:45 Disposition Disposition: Discharge Clinical Impression: Urinary retention, Right flank pain, Urinary tract infection Disposition: Home, Self-Care Condition: (1) Good Instructions: Russell Catheter Placement and Care (ED), Acute Urinary Retention in Women (ED) Additional Instructions: Follow up today with your urologist as scheduled Forms: Patient Portal Access Time of Disposition: 10:44 Quality - Quality Measures Quality Measures: N/A - Blood Pressure Screening Does Patient Have Any of the Following: No Blood Pressure Classification: Pre-Hypertensive BP Reading Systolic Measurement: 131 Diastolic Measurement: 86 Screening for High Blood Pressure: < Pre-Hypertensive BP, F/U Documented > [ G8950] Pre-Hypertensive Follow-up Interventions: Referral to alternative/primary care provider.
[2018-01-22 07:02] LABS: BLOOD UREA NITROGEN 15 mg/dL (6-20); EST GLOMERULAR FILTRATION RATE > 60 mL/min
[2018-01-22 07:03] LABS: TOTAL PROTEIN 7.5 g/dL (6.6-8.7)
[2018-01-22 07:05] LABS: GLUCOSE,RANDOM 131 mg/dL (74-109)
[2018-01-22 07:08] LABS: ALKALINE PHOSPHATASE 81 U/L (35-104); ALT/SGPT 28 U/L (<33); AST/SGOT 19 U/L (10.0-35.0)
[2018-01-22] MEDS ORDERED: ONDANSETRON HCL IV 4 MG/2 ML VIAL IVP ONE (07:09)
[2018-01-22 07:56] LABS: URINE APPEARANCE CLEAR; URINE BILIRUBIN NEGATIVE (NEGATIVE); URINE BLOOD NEGATIVE (NEGATIVE); URINE COLOR YELLOW; URINE GLUCOSE (UA) NEGATIVE (NEGATIVE); URINE KETONE NEGATIVE (NEGATIVE); URINE LEUKOCYTE ESTERASE NEGATIVE (NEGATIVE); URINE NITRITE NEGATIVE (NEGATIVE); URINE PROTEIN NEGATIVE (NEGATIVE); URINE UROBILINOGEN 0.2 E.U./dL (0.20 - 1.00)
--- NOTE | 2018-01-24 09:35 | ULTRASOUND REPORT ---
EXAM: RENAL/RETROPERITONEAL ULTRASOUND HISTORY: RIGHT UPPER QUADRANT ABDOMINAL PAIN/FLANK PAIN BEGINNING YESTERDAY. URINARY TRACT INFECTION HISTORY. TECHNIQUE: Routine ultrasound examination of the urinary bladder and kidneys is performed. Comparison: CT of the abdomen and pelvis without contrast dated 01/21/18 at 14: 32. FINDINGS: The urinary bladder is somewhat moderately distended. No uniform urinary bladder wall thickening nor focal bladder wall abnormality is identified. The prevoid bladder volume is 830 ml. The patient was unable to void. The ureteral jets are not well demonstrated on color Doppler imaging. Each kidney is visualized and smoothly marginated. Each kidney measures 11 cm in in length. No hydronephrosis is seen. No cystic nor contour deforming solid renal mass is identified. No abnormal perinephric fluid collection. IMPRESSION: 1. NORMAL SONOGRAPHIC APPEARANCE OF THE KIDNEYS. SPECIFICALLY, THERE IS NO EVIDENCE OF HYDRONEPHROSIS. 2. THE URINARY BLADDER IS SOMEWHAT PATULOUS WITH A VOLUME OF 830 ML. THE PATIENT WAS UNABLE TO VOID. JOB NUMBER: [id number] [facility]
== END 2018-01-22 11:24 | disposition home or self-care (01) ==
LOC: ER 06:36
DX: N39.0 Urinary tract infection, site not specified (principal); R10.11 Right upper quadrant pain; R33.9 Retention of urine, unspecified; R11.2 Nausea with vomiting, unspecified
CPT/HCPCS: 51702; 99284 ×2; 96374; 96361; 83690; 80053; 81003; 85027; 76775; 93005; 93010; J2405; J3010; J7030

== ENCOUNTER 2018-01-26 07:36 | Emergency (ER) | payer OTHER ==
--- NOTE | 2018-01-26 07:43 | Emergency Department Record ---
History of Present Illness - General Stated complaint: URINARY RETENTION Time Seen by Provider: 01/26/18 07:37 Source: Patient Mode of Arrival: Ambulatory Limitations: No limitations - History of Present Illness Initial comments: 57 yo female presents with a feeling of not being able to void. She was in the ED this week with similar symptoms. She did have a russell catheter placed at that time. She followed up the same day with her urogynecologist in [place]. She was able to void in the office so the catheter was removed. She was DC'd home knowing the pain and retention might return. The patient has started to have similar abdominal pressure that lead to the initial ED visit. No fever. She is nauseated. MD Complaint: Other (Urinary retention) Location: Other (right flank) Radiation: R flank Severity: Moderate Quality: Aching Consistency: Constant Improves with: None Worsens with: None Associated Symptoms: Nausea/vomiting - Related Data Allergies Allergy/AdvReac Type Severity Reaction Status Date / Time amoxicillin AdvReac Mild nausea Verified 01/26/18 07:40 ciprofloxacin [From Cipro] AdvReac VOMITING Verified 01/26/18 07:40 ciprofloxacin HCl AdvReac VOMITING Verified 01/26/18 07:40 [From Cipro] hydrocodone bitartrate AdvReac VOMITING Verified 01/26/18 07:40 [From Vicodin] morphine AdvReac VOMITING Verified 01/26/18 07:40 Opioids - Morphine Analogues AdvReac VOMITING Verified 01/26/18 07:40 Review of Systems Constitutional: Denies: Chills, Fever, Malaise, Weakness Eyes: Denies: Eye discharge ENT: Denies: Congestion, Throat pain Respiratory: Denies: Cough Cardiovascular: Denies: Chest pain Endocrine: Denies: Fatigue, Polyuria Gastrointestinal: Reports: As per HPI, Abdominal pain, Nausea, Vomiting. Denies : Diarrhea Genitourinary: Reports: As per HPI, Incontinence (Hx of), Retention. Denies: Dysuria, Frequency Musculoskeletal: Denies: Arthralgia, Back pain, Neck pain Skin: Denies: Bruising, Change in color, Rash Neurological: Denies: Headache Psychiatric: Denies: Anxiety Hematological/Lymphatic: Denies: Blood Clots, Easy bleeding, Easy bruising, Swollen glands Past Medical History - SOCIAL HISTORY Smoking Status: Former smoker Drug Use: None - RESPIRATORY Hx Respiratory Disorders: No - CARDIOVASCULAR Hx Cardio Disorders: No - NEURO Hx Neuro Disorders: Yes Hx Dizziness: Yes (HX VERTIGO) Hx Headaches: Yes (hx of migraines) Hx of Migraines: Yes - GI Hx GI Disorders: Yes Hx Abdominal Pain: Yes (R/T GALLBLADDER) Hx Reflux: Yes Hx Irritable Bowel: Yes Hx Nausea/Vomiting: Yes - Hx Genitourinary Disorders: Yes Hx Bladder Problem: Yes (PROLAPSE) Hx UTI: Yes (FREQUENT) - ENDOCRINE Hx Endocrine Disorders: Yes Hx Thyroid Disease: Yes (hypo) - MUSCULOSKELETAL Hx Musculoskeletal Disorders: Yes Hx Arthritis: Yes (OSTEOARTHRITIS, DDD) - PSYCH Hx Psych Problems: Yes Hx Anxiety: Yes Hx Depression: Yes - HEMATOLOGY/ONCOLOGY Hx Hematology/Oncology Disorders: No Family Medical History Hx Cancer: Father Hx Diabetes: Mother, Grandparents Physical Exam - General General Appearance: Alert, Oriented x3, Cooperative, No acute distress Limitations: No limitations - Head Head exam: Normal inspection - Eye Eye exam: Normal appearance. negative: Conjunctival injection - ENT ENT exam: Normal exam Ear exam: Normal external inspection Nasal Exam: Normal inspection Mouth exam: Normal external inspection - Neck Neck exam: Normal inspection - Respiratory Respiratory exam: Normal lung sounds bilaterally. negative: Respiratory distress - Cardiovascular Cardiovascular Exam: Regular rate, Normal rhythm, Normal heart sounds - GI/Abdominal GI/Abdominal exam: Soft. negative: Tenderness - Rectal Rectal exam: Deferred - exam: Deferred - Extremities Extremities exam: Normal inspection - Back Back exam: Denies: CVA tenderness (R), CVA tenderness (L) - Neurological Neurological exam: Alert, Oriented X3 - Psychiatric Psychiatric exam: Normal affect, Normal mood - Skin Skin exam: Dry, Intact, Normal color, Warm Course - Reevaluation(s) Reevaluation #1: The 01/21 Urine Culture was negative for pathogen growth The patient had a urine culture in [place] last week as well The EMR from 01/22 was reviewed 01/26/18 07:40 01/26/18 08:27 The patient quickly got full relief after bladder drainage UA is negative for infection She will again be sent home with russell with drain bag She does have follow up scheduled next week and she Bactrim already at home We discussed the results of the tests and questions were answered at the time of discharge. DC vitals were reviewed. We discussed at length reasons to immediately return to the ED as well as close follow up. The patient will call the PCP/[facility]ATOR SUPERINTENDENT for close follow up of this ED visit to review this visit and the tests performed Disposition Disposition: Discharge Clinical Impression: Urinary retention Disposition: Home, Self-Care Condition: (1) Good Instructions: Acute Urinary Retention in Women (ED) Additional Instructions: Take the Bactrim as directed. Call your family doctor and urologist to update after this ER visit. Follow up as scheduled next week with your doctors. Return to ED if your symptoms worsen or if you have any new concerns. Review the final Emergency Record and test results with your doctor on follow up Return if you have any concerns with the function of the russell and drainage bags. Time of Disposition: 08:30 Quality - Quality Measures Quality Measures: N/A - Blood Pressure Screening Does Patient Have Any of the Following: Active Dx of HTN Blood Pressure Classification: Hypertensive Reading Systolic Measurement: 131 Diastolic Measurement: 90 Screening for High Blood Pressure: Patient Exclusion, Hx of HTN [G9744]
[2018-01-26 08:21] LABS: URINE APPEARANCE CLEAR; URINE BILIRUBIN NEGATIVE (NEGATIVE); URINE BLOOD NEGATIVE (NEGATIVE); URINE COLOR YELLOW; URINE GLUCOSE (UA) NEGATIVE (NEGATIVE); URINE KETONE NEGATIVE (NEGATIVE); URINE LEUKOCYTE ESTERASE NEGATIVE (NEGATIVE); URINE NITRITE NEGATIVE (NEGATIVE); URINE PROTEIN NEGATIVE (NEGATIVE); URINE UROBILINOGEN 0.2 E.U./dL (0.20 - 1.00)
== END 2018-01-26 08:43 | disposition home or self-care (01) ==
LOC: ER 07:36
DX: R33.9 Retention of urine, unspecified (principal); R10.31 Right lower quadrant pain; R11.0 Nausea; Z87.891 Personal history of nicotine dependence
CPT/HCPCS: 81003; 99282; 99283

== ENCOUNTER 2018-03-20 15:05 | Emergency (ER) | payer OTHER ==
--- NOTE | 2018-03-20 15:33 | Emergency Department Record ---
History of Present Illness - General Chief complaint: Female Urogenital Problem Stated complaint: UTI? Time Seen by Provider: 03/20/18 15:18 Source: Patient Mode of Arrival: Ambulatory Limitations: No limitations - History of Present Illness Initial comments: The patient is here due to a 2 hour hx of dysuria and suprapubic pain. She has a hx of frequent UTI's and does self cath. The patient just finished Macrobid 4 days ago after being diagnosed with a UTI 2 weeks ago. There has been no reported fever, chills, vomiting, or diarrhea. MD Complaint: Dysuria Onset/Timin -: Hour(s) Location: Suprapubic Radiation: Non-radiating Severity scale (1-10): 6 Quality: Other Consistency: Constant Improves with: None Worsens with: Urination Patient : No Associated Symptoms: Hematuria - Related Data Sexually active: No Previous Rx's Medication Instructions Recorded Sulfamethoxazole/Trimethoprim 1 tab PO BID #14 tab 03/20/18 [Bactrim Ds] Allergies Allergy/AdvReac Type Severity Reaction Status Date / Time amoxicillin AdvReac Mild nausea Unverified 03/04/18 16:24 ciprofloxacin [From Cipro] AdvReac VOMITING Unverified 03/04/18 16:24 ciprofloxacin HCl AdvReac VOMITING Unverified 03/04/18 16:24 [From Cipro] hydrocodone bitartrate AdvReac VOMITING Unverified 03/04/18 16:24 [From Vicodin] morphine AdvReac VOMITING Unverified 03/04/18 16:24 Opioids - Morphine Analogues AdvReac VOMITING Unverified 03/04/18 16:24 Travel Screening - Travel/Exposure Within Last 30 Days Have you traveled within the last 30 days?: No Review of Systems Constitutional: Denies: Chills, Fever Eyes: Denies: Eye discharge ENT: Denies: Congestion Respiratory: Denies: Cough, Dyspnea Past Medical History - SOCIAL HISTORY Smoking Status: Former smoker - RESPIRATORY Hx Respiratory Disorders: No - CARDIOVASCULAR Hx Cardio Disorders: No - NEURO Hx Neuro Disorders: Yes Hx Dizziness: Yes (HX VERTIGO) Hx Headaches: Yes (hx of migraines) Hx of Migraines: Yes - GI Hx GI Disorders: Yes Hx Abdominal Pain: Yes (R/T GALLBLADDER) Hx Reflux: Yes Hx Irritable Bowel: Yes Hx Nausea/Vomiting: Yes - Hx Genitourinary Disorders: Yes Hx Bladder Problem: Yes (PROLAPSE) Hx UTI: Yes (FREQUENT) - ENDOCRINE Hx Endocrine Disorders: Yes Hx Thyroid Disease: Yes (hypo) - MUSCULOSKELETAL Hx Musculoskeletal Disorders: Yes Hx Arthritis: Yes (OSTEOARTHRITIS, DDD) - PSYCH Hx Psych Problems: Yes Hx Anxiety: Yes Hx Depression: Yes - HEMATOLOGY/ONCOLOGY Hx Hematology/Oncology Disorders: No Family Medical History Any Significant Family History?: Yes Hx Cancer: Father Hx Diabetes: Mother, Grandparents Physical Exam - General General Appearance: Alert, Oriented x3, Cooperative, No acute distress - Head Head exam: Atraumatic, Normocephalic - Eye Eye exam: Normal appearance, PERRL - Neck Neck exam: Normal inspection, Full ROM. negative: Tenderness - Respiratory Respiratory exam: Normal lung sounds bilaterally. negative: Respiratory distress - Cardiovascular Cardiovascular Exam: Regular rate, Normal rhythm, Normal heart sounds - GI/Abdominal GI/Abdominal exam: Soft, Normal bowel sounds. negative: Hypoactive bowel sounds , Rebound, Rigid, Tenderness - Extremities Extremities exam: Normal inspection, Full ROM, Normal capillary refill. negative: Tenderness - Back Back exam: Denies: CVA tenderness (R), CVA tenderness (L) Course Vital Signs 03/20/18 15:13 Temperature 97.9 F Pulse Rate 86 Respiratory 20 Rate Blood Pressure 150/87 Pulse Ox 99 - Reevaluation(s) Reevaluation #1: I did discuss the UA results with the patient and the need for oral Abx's. Since she is allergic to Cipro and just finished Macrobid I did elect to go with Bactrim orally. She is to keep her appointment with Dr. Mejia for tomorrow. 03/20/18 15:45 Disposition Disposition: Discharge Clinical Impression: Urinary tract infection Qualifiers: Urinary tract infection type: site unspecified Hematuria presence: without hematuria Qualified Code(s): N39.0 - Urinary tract infection, site not specified Disposition: Home, Self-Care Condition: (2) Stable Instructions: Urinary Tract Infection in Women (ED) Additional Instructions: Please use your home Pyridium for 2 days and take the Bactrim for [address] Mejia as planned tomorrow. Return to the ER for any worsening symptoms, pain, fever, or vomiting. Prescriptions: Sulfamethoxazole/Trimethoprim [Bactrim Ds] 1 tab PO BID #14 tab Forms: Patient Portal Access Time of Disposition: 15:47 Quality - Quality Measures Quality Measures: N/A - Blood Pressure Screening View Details: Yes Does Patient Have Any of the Following: No Blood Pressure Classification: Pre-Hypertensive BP Reading Systolic Measurement: 150 Diastolic Measurement: 87 Screening for High Blood Pressure: < Pre-Hypertensive BP, F/U Documented > [ G8950] Pre-Hypertensive Follow-up Interventions: Referral to alternative/primary care provider.
[2018-03-20 15:35] LABS: URINE APPEARANCE CLOUDY; URINE BILIRUBIN NEGATIVE (NEGATIVE); URINE BLOOD MODERATE (NEGATIVE); URINE COLOR YELLOW; URINE GLUCOSE (UA) NEGATIVE (NEGATIVE); URINE KETONE NEGATIVE (NEGATIVE); URINE LEUKOCYTE ESTERASE LARGE (NEGATIVE); URINE NITRITE NEGATIVE (NEGATIVE); URINE UROBILINOGEN 0.2 E.U./dL (0.20 - 1.00)
[2018-03-20 15:43] LABS: URINE BACTERIA 1+; URINE EPITHELIAL CELLS 0 - 2 (FEW)
[2018-03-20] MEDS ORDERED: TMP/SMZ 160MG/800MG TAB PO ONE (15:44)
== END 2018-03-20 16:07 | disposition home or self-care (01) ==
LOC: ER 15:05
DX: N39.0 Urinary tract infection, site not specified (principal); Z87.891 Personal history of nicotine dependence
CPT/HCPCS: 81001; J3490; 99282

== ENCOUNTER 2018-03-23 05:57 | Emergency (ER) | payer OTHER ==
--- NOTE | 2018-03-23 06:34 | Emergency Department Record ---
History of Present Illness - General Chief Complaint: Abdominal Pain Stated Complaint: ABDOMINAL PAIN Time Seen by Provider: 03/23/18 06:05 Source: Patient Mode of Arrival: Ambulatory Limitations: No limitations - History of Present Illness Initial Comments: 58 yo female presents to ED for evaluation of urinary burning, nausea, vomiting , and suprapubic abdominal pain symptoms that began this morning. Patient reports that she was seen and treated for a UTI Sunday (started on bactrim), saw her PCP yesterday for continued symptoms and was started on Levaquin at that time. Patient reports a history of urinary retention prolapsed uterus, reports that she has been consulting with both a urologist and Dr. Hoffmann for her uterine prolapse symptoms. Patient reports very similar symptoms in December of this year. Patient reports previous cholecystectomy as well. MD Complaint: Abdominal pain Onset/Timin -: Days(s) Location: R Flank, RUQ Severity scale (1-10): 8 Consistency: Getting worse Improves With: Nothing Worsens With: Nothing Associated Symptoms: Nausea, Vomiting - Related Data Allergies Allergy/AdvReac Type Severity Reaction Status Date / Time amoxicillin AdvReac Mild nausea Unverified 03/22/18 08:44 ciprofloxacin [From Cipro] AdvReac VOMITING Unverified 03/22/18 08:44 ciprofloxacin HCl AdvReac VOMITING Unverified 03/22/18 08:44 [From Cipro] hydrocodone bitartrate AdvReac VOMITING Unverified 03/22/18 08:44 [From Vicodin] morphine AdvReac VOMITING Unverified 03/22/18 08:44 Opioids - Morphine Analogues AdvReac VOMITING Unverified 03/22/18 08:44 Travel Screening - Travel/Exposure Within Last 30 Days Have you traveled within the last 30 days?: No Review of Systems Constitutional: Denies: Chills, Fever, Malaise, Night sweats Eyes: Denies: Eye discharge, Eye pain ENT: Denies: Congestion, Ear pain, Epistaxis Respiratory: Denies: Cough, Dyspnea Cardiovascular: Denies: Chest pain, Dyspnea on exertion Endocrine: Denies: Fatigue, Heat or cold intolerance Gastrointestinal: Reports: Abdominal pain, Nausea, Vomiting Genitourinary: Reports: Retention. Denies: Incontinence Musculoskeletal: Denies: Arthralgia, Back pain Skin: Denies: Bruising, Change in color Neurological: Denies: Abnormal gait, Confusion, Headache, Seizure Psychiatric: Denies: Anxiety Hematological/Lymphatic: Denies: Anemia, Blood Clots Past Medical History - SOCIAL HISTORY Smoking Status: Former smoker Alcohol Use: None Drug Use: None - RESPIRATORY Hx Respiratory Disorders: No - CARDIOVASCULAR Hx Cardio Disorders: No - NEURO Hx Neuro Disorders: Yes Hx Dizziness: Yes (HX VERTIGO) Hx Headaches: Yes (hx of migraines) Hx of Migraines: Yes - GI Hx GI Disorders: Yes Hx Abdominal Pain: Yes (R/T GALLBLADDER) Hx Reflux: Yes Hx Irritable Bowel: Yes Hx Nausea/Vomiting: Yes - Hx Genitourinary Disorders: Yes Hx Bladder Problem: Yes (PROLAPSE) Hx UTI: Yes (FREQUENT) - ENDOCRINE Hx Endocrine Disorders: Yes Hx Thyroid Disease: Yes (hypo) - MUSCULOSKELETAL Hx Musculoskeletal Disorders: Yes Hx Arthritis: Yes (OSTEOARTHRITIS, DDD) - PSYCH Hx Psych Problems: Yes Hx Anxiety: Yes Hx Depression: Yes - HEMATOLOGY/ONCOLOGY Hx Hematology/Oncology Disorders: No Family Medical History Any Significant Family History?: Yes Hx Cancer: Father Hx Diabetes: Mother, Grandparents Physical Exam - General General Appearance: Alert, Oriented x3, Cooperative, Moderate distress, Anxious Limitations: No limitations - Head Head exam: Atraumatic, Normocephalic, Normal inspection Head exam detail: negative: Abrasion, Contusion, Armenta's sign, General tenderness, Hematoma, Laceration - Eye Eye exam: Normal appearance. negative: Conjunctival injection, Periorbital swelling, Periorbital tenderness, Scleral icterus - ENT Ear exam: negative: Auricular hematoma, Auricular trauma Nasal Exam: negative: Active bleeding, Discharge, Dried blood, Foreign body Mouth exam: negative: Drooling, Laceration, Muffled voice, Tongue elevation - Neck Neck exam: Normal inspection. negative: Meningismus, Tenderness - Respiratory Respiratory exam: Normal lung sounds bilaterally. negative: Rales, Respiratory distress, Rhonchi, Stridor - Cardiovascular Cardiovascular Exam: Regular rate, Normal rhythm, Normal heart sounds - GI/Abdominal GI/Abdominal exam: Soft, Tenderness, Other (TTP over merrick suprapubic region on examination, no rebound, guarding, or peritoneal signs are present on examination.). negative: Rebound, Rigid - Rectal Rectal exam: Deferred - exam: Deferred - Extremities Extremities exam: Normal inspection. negative: Calf tenderness, Pedal edema, Tenderness - Back Back exam: Denies: CVA tenderness (R), CVA tenderness (L) - Neurological Neurological exam: Alert, Normal gait, Oriented X3 - Psychiatric Psychiatric exam: Anxious - Skin Skin exam: Normal color. negative: Abrasion Type of lesion: negative: abrasion Course Vital Signs 03/23/18 06:04 Temperature 97.5 F L Pulse Rate [ 82 Pulse Ox Probe] Respiratory 24 Rate Blood Pressure 113/77 [Left Arm] Pulse Ox 100 - Reevaluation(s) Reevaluation #1: 03/23/18 06:32 Bladder scan was performed, patient is retaining 462 mL of urine. Will place russell catheter for her urinary retention symptoms, obtain laboratory studies, and obtain CT imaging to exclude an acute intra-abdominal process. Reevaluation #2: 03/23/18 06:56 Case was discussed with oncoming provider, will assume care and dispostion pending laboratory results, CT imaging results, and re-evaluation. Medical Decision Making - Lab Data Result diagrams: 03/23/18 06:35 03/23/18 06:35 Disposition Forms: Patient Portal Access Quality - Quality Measures Quality Measures: N/A - Blood Pressure Screening Does Patient Have Any of the Following: No Blood Pressure Classification: Normal BP Reading Systolic Measurement: 113 Diastolic Measurement: 77 Screening for High Blood Pressure: < Normal BP, F/U Not Required > [G8783]
[2018-03-23] MEDS ORDERED: ACETAMINOPHEN 1,000 MG/100 ML BTL IVPB ONE (06:35)
[2018-03-23] MEDS ORDERED: ONDANSETRON HCL IV 4 MG/2 ML VIAL IVP ONE (06:35)
[2018-03-23 06:53] LABS: URINE APPEARANCE CLOUDY; URINE BILIRUBIN NEGATIVE (NEGATIVE); URINE BLOOD TRACE-I (NEGATIVE); URINE COLOR YELLOW; URINE GLUCOSE (UA) NEGATIVE (NEGATIVE); URINE KETONE NEGATIVE (NEGATIVE); URINE LEUKOCYTE ESTERASE SMALL (NEGATIVE); URINE NITRITE NEGATIVE (NEGATIVE); URINE PROTEIN NEGATIVE (NEGATIVE); URINE UROBILINOGEN 0.2 E.U./dL (0.20 - 1.00)
[2018-03-23 06:57] LABS: URINE BACTERIA FEW; URINE RBC 0 - 2 (NONE SEEN); URINE WBC 16 - 20 (0-2/hpf)
[2018-03-23 06:59] LABS: URINE EPITHELIAL CELLS 21 - 35 (FEW)
[2018-03-23 07:02] LABS: BASO % 0.4 % (0-6); EOS % 0.4 % (0-6); GRAN % 75.5 % (47-80); HEMATOCRIT 40.4 % (35.0-47.0); HEMOGLOBIN 13.3 gm/dl (11.6-16.0); MEAN CELL VOLUME 91.8 fl (81-97); MEAN CORPUSCULAR HEMOGLOBIN 30.2 pg (27-33); MEAN CORPUSCULAR HGB CONC 32.9 g/dl (32-36); MEAN PLATELET VOLUME 9.9 fl (7.4-10.4); MONO % 4.7 % (0-9); PLATELET COUNT 288 K/uL (130-400); RED CELL DISTRIBUTION WIDTH 13.2 % (11.5-14.5); WHITE BLOOD COUNT W/O DIFF 11.4 K/uL (4.2-12.2)
[2018-03-23 07:16] LABS: BLOOD UREA NITROGEN 16 mg/dL (6-20); EST GLOMERULAR FILTRATION RATE > 60 mL/min; TOTAL PROTEIN 7.6 g/dL (6.6-8.7)
[2018-03-23 07:18] LABS: GLUCOSE,RANDOM 108 mg/dL (74-109)
[2018-03-23 07:21] LABS: ALB/GLOB RATIO 2.2 (1.1-1.8); ALBUMIN 5.2 g/dL (4.0-5.0); ALKALINE PHOSPHATASE 79 U/L (35-104); ALT/SGPT 21 U/L (<33); AST/SGOT 16 U/L (10.0-35.0); LIPASE 30 U/L (13-60)
[2018-03-23] MEDS ORDERED: KETOROLAC 30 MG/ML VIAL IVP ONE (08:15)
[2018-03-23] MEDS ORDERED: 0.9 % SODIUM CHLORIDE 1000ML 1,000 ML IV SCH (08:15)
--- NOTE | 2018-03-23 09:10 | Emergency Department Record ---
History of Present Illness - General Chief Complaint: Abdominal Pain Stated Complaint: ABDOMINAL PAIN Time Seen by Provider: 03/23/18 06:05 Source: Patient Mode of Arrival: Ambulatory Limitations: No limitations - History of Present Illness Initial Comments: RUQ abdominal pain and right flank pain worse with palpation and movement in the back area Complaint: Abdominal pain Onset/Timin -: Days(s) Location: R Flank, RUQ Severity scale (1-10): 8 Consistency: Getting worse Improves With: Nothing Worsens With: Nothing Associated Symptoms: Nausea, Vomiting - Related Data Patient : No Previous Rx's Medication Instructions Recorded Cephalexin [Keflex] 500 mg PO TID #30 cap 03/23/18 Allergies Allergy/AdvReac Type Severity Reaction Status Date / Time amoxicillin AdvReac Mild nausea Unverified 03/22/18 08:44 ciprofloxacin [From Cipro] AdvReac VOMITING Unverified 03/22/18 08:44 ciprofloxacin HCl AdvReac VOMITING Unverified 03/22/18 08:44 [From Cipro] hydrocodone bitartrate AdvReac VOMITING Unverified 03/22/18 08:44 [From Vicodin] morphine AdvReac VOMITING Unverified 03/22/18 08:44 Opioids - Morphine Analogues AdvReac VOMITING Unverified 03/22/18 08:44 Travel Screening - Travel/Exposure Within Last 30 Days Have you traveled within the last 30 days?: No Review of Systems Constitutional: Denies: Chills, Fever, Malaise, Night sweats Eyes: Denies: Eye discharge, Eye pain ENT: Denies: Congestion, Ear pain, Epistaxis Respiratory: Denies: Cough, Dyspnea Cardiovascular: Denies: Chest pain, Dyspnea on exertion Endocrine: Denies: Fatigue, Heat or cold intolerance Gastrointestinal: Reports: Abdominal pain, Nausea, Vomiting Genitourinary: Reports: Retention. Denies: Incontinence Musculoskeletal: Denies: Arthralgia, Back pain Skin: Denies: Bruising, Change in color Neurological: Denies: Abnormal gait, Confusion, Headache, Seizure Psychiatric: Denies: Anxiety Hematological/Lymphatic: Denies: Anemia, Blood Clots Past Medical History - SOCIAL HISTORY Smoking Status: Former smoker Alcohol Use: None Drug Use: None - RESPIRATORY Hx Respiratory Disorders: No - CARDIOVASCULAR Hx Cardio Disorders: No - NEURO Hx Neuro Disorders: Yes Hx Dizziness: Yes (HX VERTIGO) Hx Headaches: Yes (hx of migraines) Hx of Migraines: Yes - GI Hx GI Disorders: Yes Hx Abdominal Pain: Yes (R/T GALLBLADDER) Hx Reflux: Yes Hx Irritable Bowel: Yes Hx Nausea/Vomiting: Yes - Hx Genitourinary Disorders: Yes Hx Bladder Problem: Yes (PROLAPSE) Hx UTI: Yes (FREQUENT) - ENDOCRINE Hx Endocrine Disorders: Yes Hx Thyroid Disease: Yes (hypo) - MUSCULOSKELETAL Hx Musculoskeletal Disorders: Yes Hx Arthritis: Yes (OSTEOARTHRITIS, DDD) - PSYCH Hx Psych Problems: Yes Hx Anxiety: Yes Hx Depression: Yes - HEMATOLOGY/ONCOLOGY Hx Hematology/Oncology Disorders: No Family Medical History Any Significant Family History?: Yes Hx Cancer: Father Hx Diabetes: Mother, Grandparents Physical Exam - General General Appearance: Alert, Oriented x3, Cooperative, No acute distress Limitations: No limitations - Head Head exam: Normal inspection - Eye Eye exam: Normal appearance, PERRL Pupils: Normal accommodation - ENT ENT exam: Normal exam, Mucous membranes moist, Normal external ear exam, Normal orophraynx, TM's normal bilaterally Ear exam: Normal external inspection. negative: External canal tenderness Nasal Exam: Normal inspection. negative: Discharge, Sinus tenderness Mouth exam: Normal external inspection, Tongue normal Teeth exam: Normal inspection. negative: Dental caries Throat exam: Normal inspection. negative: Tonsillar erythema, Tonsillar exudate - Neck Neck exam: Normal inspection, Full ROM. negative: Tenderness - Respiratory Respiratory exam: Normal lung sounds bilaterally. negative: Respiratory distress - Cardiovascular Cardiovascular Exam: Regular rate, Normal rhythm, Normal heart sounds - GI/Abdominal GI/Abdominal exam: Soft, Normal bowel sounds, Tenderness (right upper quad and more right back pain) - Rectal Rectal exam: Deferred - exam: Deferred - Extremities Extremities exam: Normal inspection, Full ROM, Normal capillary refill. negative: Tenderness - Back Back exam: Reports: Normal inspection, Full ROM. Denies: Muscle spasm, Rash noted, Tenderness - Neurological Neurological exam: Alert, Normal gait, Oriented X3, Reflexes normal - Psychiatric Psychiatric exam: Normal affect, Normal mood - Skin Skin exam: Dry, Intact, Normal color, Warm Course Vital Signs 03/23/18 03/23/18 06:04 08:23 Temperature 97.5 F L Pulse Rate [ 82 72 Pulse Ox Probe] Respiratory 24 18 Rate Blood Pressure 113/77 124/82 [Left Arm] Pulse Ox 100 100 - Reevaluation(s) Reevaluation #1: patient said the levaquin was making her sick and she will not take that. We decided to use keflex 500 mg three times a day 03/23/18 09:15 Medical Decision Making - Data Complexity MDM Data: Labs Ordered and/or Reviewed (urine looks contaimanted but she self caths and on levaquin and reviewed her urine done at her last ED visit 4 days ago no growth), X-Ray Ordered and/or Reviewed (CT scan negative) - Lab Data Result diagrams: 03/23/18 06:56 03/23/18 06:56 Lab Results 03/23/18 03/23/18 03/23/18 Range/Units 06:54 06:56 06:56 WBC 11.4 (4.2-12.2) K/uL RBC 4.40 (3.80-5.40) M/uL Hgb 13.3 (11.6-16.0) gm/dl Hct 40.4 (35.0-47.0) % MCV 91.8 (81-97) fl MCH 30.2 (27-33) pg MCHC 32.9 (32-36) g/dl RDW 13.2 (11.5-14.5) % Plt Count 288 (130-400) K/uL MPV 9.9 (7.4-10.4) fl Gran % 75.5 (47-80) % Lymphocytes % 19.0 (16-45) % Monocytes % 4.7 (0-9) % Eosinophils % 0.4 (0-6) % Basophils % 0.4 (0-6) % Sodium 142 (136-145) mmol/L Potassium 4.2 (3.4-4.5) mmol/L Chloride 104 (98-107) mmol/L Carbon Dioxide 22.0 (22-29) mmol/L Anion Gap 16.0 (7-16) BUN 16 (6-20) mg/dL Creatinine 1.0 H (0.5-0.9) mg/dL Estimated GFR > 60 mL/min Random Glucose 108 (74-109) mg/dL Calcium 10.1 H (8.6-10.0) mg/dL Total Bilirubin 0.70 (0.2-1.0) mg/dL AST 16 (10.0-35.0) U/L ALT 21 (<33) U/L Alkaline Phosphatase 79 (35-104) U/L Total Protein 7.6 (6.6-8.7) g/dL Albumin 5.2 H (4.0-5.0) g/dL Globulin 2.4 (1.4-4.8) gm/dL Albumin/Globulin Ratio 2.2 H (1.1-1.8) Lipase 30 (13-60) U/L Urine Color Yellow Urine Appearance Cloudy Urine pH 6.0 (5.0-8.0) Ur Specific [place] 1.020 (1.002-1.030) Urine Protein Negative (NEGATIVE) Urine Glucose (UA) Negative (NEGATIVE) Urine Ketones Negative (NEGATIVE) Urine Blood Trace-i (NEGATIVE) Urine Nitrite Negative (NEGATIVE) Urine Bilirubin Negative (NEGATIVE) Urine Urobilinogen 0.2 (0.20 - 1.00) E.U./dL Ur Leukocyte Esterase Small H (NEGATIVE) Urine RBC 0 - 2 (NONE SEEN) Urine WBC 16 - 20 (0-2/hpf) Ur Epithelial Cells 21 - 35 (FEW) Urine Bacteria Few Disposition Clinical Impression: Strain of lumbar region Qualifiers: Encounter type: initial encounter Qualified Code(s): S39.012A - Strain of muscle, fascia and tendon of lower back, initial encounter UTI (urinary tract infection) Qualifiers: Urinary tract infection type: acute cystitis Hematuria presence: without hematuria Qualified Code(s): N30.00 - Acute cystitis without hematuria Disposition: Home, Self-Care Condition: (1) Good Additional Instructions: follow up with Tenisha Yepez next week use tylenol and aleve for back pain stop levaquin making her sick start keflex 500 mg Three times a day Prescriptions: Cephalexin [Keflex] 500 mg PO TID #30 cap Forms: Patient Portal Access Time of Disposition: 09:18 Quality - Quality Measures Quality Measures: N/A - Blood Pressure Screening Does Patient Have Any of the Following: No Blood Pressure Classification: Pre-Hypertensive BP Reading Systolic Measurement: 124 Diastolic Measurement: 82 Screening for High Blood Pressure: < Pre-Hypertensive BP, F/U Documented > [ [id number]] Pre-Hypertensive Follow-up Interventions: Referral to alternative/primary care provider.
--- NOTE | 2018-03-25 08:43 | CT SCAN REPORT ---
EXAM: NONCONTRAST CT OF THE ABDOMEN AND PELVIS HISTORY: DYSURIA, RIGHT FLANK PAIN, NAUSEA AND VOMITING FOR ONE DAY. TECHNIQUE: Noncontrast CT of the abdomen and pelvis was obtained. Comparison: CT of the abdomen and pelvis 01/21/18. FINDINGS: Small calcified granuloma in the right middle lobe, partially visualized. The lung bases are otherwise clear. The gallbladder appears absent. Unremarkable noncontrast appearance of the liver, adrenal glands, spleen, and pancreas. No intrarenal or ureteral calculi detected. No hydronephrosis. No definite intraluminal bladder calculi. A punctate calcification is noted along the external surface of the anterior superior urinary bladder (sagittal image 108), similar from prior examination. The urinary bladder is minimally distended with diffusely thickened appearance of the lu. Scattered colonic diverticulosis without evidence of acute diverticulitis. The appendix is not inflamed. The stomach and small bowel are not dilated. No discreetly enlarged mesenteric or or retroperitoneal lymph nodes are identified. Scattered calcification of the aortoiliac arterial access without evidence of aneurysm. Multilevel thoracolumbar spine degenerative changes. Findings at L4- L5 where there is disk space height loss and marked sclerosis and irregularity of the vertebral end plates, similar from prior. IMPRESSION: 1. NO EVIDENCE OF UROLITHIASIS OR OBSTRUCTIVE UROPATHY. 2. DIFFUSELY THICKENED APPEARANCE OF THE URINARY BLADDER LU; MAY BE ACCENTUATED BY BLADDER UNDERDISTENTION ALTHOUGH CORRELATION FOR CYSTITIS IS RECOMMENDED. 3. COLONIC DIVERTICULOSIS WITHOUT EVIDENCE OF ACUTE DIVERTICULITIS. JOB NUMBER: [id number] MTDD
== END 2018-03-23 09:42 | disposition home or self-care (01) ==
LOC: ER 05:57
DX: S39.012A Strain of muscle, fascia and tendon of lower back, initial encounter (principal); N30.00 Acute cystitis without hematuria; R10.11 Right upper quadrant pain; R11.2 Nausea with vomiting, unspecified; X58.XXXA Exposure to other specified factors, initial encounter; Z87.891 Personal history of nicotine dependence
CPT/HCPCS: 51702; 99284 ×2; 96365; 96375; 83690; 85025; 80053; 81001; 74176; J1885; J2405; J7030

== ENCOUNTER 2018-05-28 21:37 | Emergency (ER) | payer OTHER ==
--- NOTE | 2018-05-28 22:45 | Emergency Department Record ---
History of Present Illness - General Chief complaint: Female Urogenital Problem Stated complaint: VAGINAL BLEEDING Time Seen by Provider: 05/28/18 22:30 Source: Patient Mode of Arrival: Ambulatory - History of Present Illness Initial comments: Patient states that she self caths twice daily due to bladder dysfunction and prolapse. Tonight she was self- cathing and began bleeding from her urethra. She denies other symptoms such as AP, flank pain, or urinary symptoms. Onset/Timin -: Minutes(s) Associated Symptoms: Denies other symptoms - Related Data Home Medications Medication Instructions Recorded Confirmed Last Taken Doxazosin Mesylate [Cardura] 2 mg PO DAILY 05/28/18 05/28/18 Unknown Metformin HCl [Glucophage] 500 mg PO DAILY 05/28/18 05/28/18 Unknown Allergies Allergy/AdvReac Type Severity Reaction Status Date / Time tamsulosin HCl [From Flomax] AdvReac Intermediate dizziness Verified 05/28/18 21:42 amoxicillin AdvReac Mild nausea Verified 05/28/18 21:42 ciprofloxacin [From Cipro] AdvReac VOMITING Verified 05/28/18 21:42 ciprofloxacin HCl AdvReac VOMITING Verified 05/28/18 21:42 [From Cipro] hydrocodone bitartrate AdvReac VOMITING Verified 05/28/18 21:42 [From Vicodin] morphine AdvReac VOMITING Verified 05/28/18 21:42 Opioids - Morphine Analogues AdvReac VOMITING Verified 05/28/18 21:42 Travel Screening - Travel/Exposure Within Last 30 Days Have you traveled within the last 30 days?: No - Travel Symptoms Symptom Screening: None Past Medical History - SOCIAL HISTORY Smoking Status: Former smoker - RESPIRATORY Hx Respiratory Disorders: No - CARDIOVASCULAR Hx Cardio Disorders: Yes Hx Hypertension: Yes - NEURO Hx Neuro Disorders: Yes Hx Dizziness: Yes (HX VERTIGO) Hx Headaches: Yes (hx of migraines) Hx of Migraines: Yes - GI Hx GI Disorders: Yes Hx Abdominal Pain: Yes (R/T GALLBLADDER) Hx Reflux: Yes Hx Irritable Bowel: Yes Hx Nausea/Vomiting: Yes - Hx Genitourinary Disorders: Yes Hx Bladder Problem: Yes (PROLAPSE) Hx UTI: Yes (FREQUENT) Comment:: self cathing 4-5 mos now d/t retention - ENDOCRINE Hx Endocrine Disorders: Yes Hx Diabetes: Yes Hx Thyroid Disease: Yes (hypo) - MUSCULOSKELETAL Hx Musculoskeletal Disorders: Yes Hx Arthritis: Yes (OSTEOARTHRITIS, DDD) - PSYCH Hx Psych Problems: Yes Hx Anxiety: Yes Hx Depression: Yes - HEMATOLOGY/ONCOLOGY Hx Hematology/Oncology Disorders: No Family Medical History Any Significant Family History?: Yes Hx Cancer: Father Hx Diabetes: Mother, Grandparents Physical Exam - General General Appearance: Alert, Oriented x3, Cooperative, No acute distress - Head Head exam: Normal inspection - Eye Eye exam: Normal appearance, PERRL Pupils: Normal accommodation - ENT ENT exam: Normal exam, Mucous membranes moist, Normal external ear exam, Normal orophraynx, TM's normal bilaterally Ear exam: Normal external inspection. negative: External canal tenderness Nasal Exam: Normal inspection. negative: Discharge, Sinus tenderness Mouth exam: Normal external inspection, Tongue normal Teeth exam: Normal inspection. negative: Dental caries Throat exam: Normal inspection. negative: Tonsillar erythema, Tonsillar exudate - Neck Neck exam: Normal inspection, Full ROM. negative: Tenderness - Respiratory Respiratory exam: Normal lung sounds bilaterally. negative: Respiratory distress - Cardiovascular Cardiovascular Exam: Regular rate, Normal rhythm, Normal heart sounds - GI/Abdominal GI/Abdominal exam: Soft, Normal bowel sounds. negative: Tenderness - Rectal Rectal exam: Deferred - exam: Deferred, Other (Inspected vaginal and urethral perineum with blood source [id number] as urethra.) - Extremities Extremities exam: Normal inspection, Full ROM, Normal capillary refill. negative: Tenderness - Back Back exam: Reports: Normal inspection, Full ROM. Denies: Muscle spasm, Rash noted, Tenderness - Neurological Neurological exam: Alert, Normal gait, Oriented X3, Reflexes normal - Psychiatric Psychiatric exam: Normal affect, Normal mood - Skin Skin exam: Dry, Intact, Normal color, Warm Course Vital Signs 05/28/18 21:46 Temperature 97.9 F Pulse Rate 81 Respiratory 16 Rate Blood Pressure 169/98 Pulse Ox 97 - Reevaluation(s) Reevaluation #1: 05/29/18 00:09 Discussed with patient the need for office visit with her Urologist in the offic in the daytime today. Patient understands and agrees Medical Decision Making - Management Options MDM Management: Additional Work-up Planned (e.g. ADM/Transfer/OP Study) ( Urologist Follow up in office today) - Lab Data Result diagrams: 05/28/18 22:50 05/28/18 22:50 Disposition Disposition: Discharge Clinical Impression: Urethral bleeding Disposition: Home, Self-Care Condition: (1) Good Instructions: Hematuria (ED) Additional Instructions: Call Dr. Fierro's office later this morning for appointment to be seen. Quality - Quality Measures Quality Measures: N/A - Blood Pressure Screening Does Patient Have Any of the Following: No Blood Pressure Classification: Hypertensive Reading Systolic Measurement: 169 Diastolic Measurement: 98 Screening for High Blood Pressure: Patient Exclusion, Hx of HTN [G9744]
[2018-05-28 23:06] LABS: BASO % 0.7 % (0-6); GRAN % 60.5 % (47-80); HEMATOCRIT 34.7 % (35.0-47.0); HEMOGLOBIN 11.1 gm/dl (11.6-16.0); LYMPH % 32.5 % (16-45); MEAN CELL VOLUME 93.3 fl (81-97); MEAN CORPUSCULAR HEMOGLOBIN 29.8 pg (27-33); MEAN PLATELET VOLUME 9.5 fl (7.4-10.4); MONO % 5.3 % (0-9); PLATELET COUNT 315 K/uL (130-400); RED BLOOD COUNT 3.72 M/uL (3.80-5.40); WHITE BLOOD COUNT W/O DIFF 7.2 K/uL (4.2-12.2)
[2018-05-29 00:15] LABS: ALB/GLOB RATIO 1.8 (1.1-1.8); ALBUMIN 4.5 g/dL (4.0-5.0); ALKALINE PHOSPHATASE 81 U/L (35-104); ALT/SGPT 22 U/L (<33); AST/SGOT 19 U/L (10.0-35.0); BLOOD UREA NITROGEN 14 mg/dL (6-20); CREATININE 0.8 mg/dL (0.5-0.9); EST GLOMERULAR FILTRATION RATE > 60 mL/min; GLUCOSE,RANDOM 110 mg/dL (74-109)
== END 2018-05-29 01:25 | disposition home or self-care (01) ==
LOC: ER 21:37
DX: N36.8 Other specified disorders of urethra (principal); I10 Essential (primary) hypertension; E11.9 Type 2 diabetes mellitus without complications; Z87.891 Personal history of nicotine dependence; Z79.84 Long term (current) use of oral hypoglycemic drugs
CPT/HCPCS: 80053; 85025; 85610; 85730; 99284